=== PATIENT | male | born 1970 | race Two or more races ===

== ENCOUNTER → 2016-10-08 | Outpatient (CLI) | payer MEDICAID ==
[2016-10-08 18:06] LABS: HEMATOCRIT 45.6 % (37.9-51.0); HEMOGLOBIN 16.4 g/dL (13.5-17.0); HGB HCT DIFFERENCE 3.6; MEAN CORPUSCULAR HGB CONC 35.9 g/dL (32.0-36.0); MEAN CORPUSCULAR VOLUME 84 fl (80-97); RED BLOOD COUNT 5.45 10^6/uL (4.35-5.55); RED CELL DISTRIBUTION WIDTH 14.4 % (11.5-14.0); WHITE BLOOD COUNT 9.7 10^3/uL (4.0-10.5)
[2016-10-08 18:29] LABS: ALANINE AMINOTRANSFERASE 46 U/L (21-72); ALBUMIN 4.9 g/dL (3.5-5.0); ALKALINE PHOSPHATASE 131 U/L (38-126); ANION GAP 16 (5-19); ASPARTATE AMINO TRANSFERASE 34 U/L (17-59); BILIRUBIN,DIRECT 0.3 mg/dL (0.0-0.4); BILIRUBIN,TOTAL 0.5 mg/dL (0.2-1.3); BLOOD UREA NITROGEN 17 mg/dL (7-20); CALCIUM 9.6 mg/dL (8.4-10.2); CARBON DIOXIDE 23 mmol/L (22-30); CHLORIDE 101 mmol/L (98-107); CHOLESTEROL 201.57 mg/dL (0-200); CREATININE RESULT 0.94 mg/dL (0.52-1.25); Direct HDL 35 mg/dL (>40); GLUCOSE 332 mg/dL (75-110); POTASSIUM 4.2 mmol/L (3.6-5.0); SODIUM 139.9 mmol/L (137-145); TOTAL PROTEIN 7.6 g/dL (6.3-8.2); TRIGLYCERIDES 308 mg/dL (<150)
[2016-10-08 18:39] LABS: DIRECT LDL 102 mg/dL (<100)
[2016-10-08 18:40] LABS: VLDL CHOLESTEROL 61.6 mg/dL (10-31)
== END ==
LOC: OD 17:04
PROVIDERS: ATTEND Nurse Practitioner Family
DX: E55.9 Vitamin D deficiency, unspecified (principal); E11.9 Type 2 diabetes mellitus without complications; I10 Essential (primary) hypertension; E78.5 Hyperlipidemia, unspecified
CPT/HCPCS: 36415; 80053; 80061; 82306; 83036; 85027

== ENCOUNTER → 2016-11-06 | Outpatient (CLI) | payer MEDICAID ==
[2016-11-06 18:35] LABS: ABSOLUTE BASOPHILS # (AUTO) 0.1 10^3/uL (0.0-0.2); ABSOLUTE EOSINOPHILS # (AUTO) 0.1 10^3/uL (0.0-0.6); ABSOLUTE LYMPHOCYTES (AUTO) 2.3 10^3/uL (0.5-4.7); ABSOLUTE MONOCYTES (AUTO) 0.7 10^3/uL (0.1-1.4); ABSOLUTE NEUT (AUTO) 8.9 10^3/uL (1.7-8.2); BASOPHILS % (AUTO) 0.8 % (0-2); HEMATOCRIT 47.9 % (37.9-51.0); HEMOGLOBIN 16.9 g/dL (13.5-17.0); HGB HCT DIFFERENCE 2.8; LYMPHOCYTES % (AUTO) 18.8 % (13-45); MEAN CORPUSCULAR HEMOGLOBIN 29.9 pg (27.0-33.4); MEAN CORPUSCULAR HGB CONC 35.2 g/dL (32.0-36.0); MEAN CORPUSCULAR VOLUME 85 fl (80-97); RED BLOOD COUNT 5.65 10^6/uL (4.35-5.55); SEGMENTED NEUTROPHILS % (AUTO) 73.4 % (42-78); WHITE BLOOD COUNT 12.2 10^3/uL (4.0-10.5)
[2016-11-06 18:35] LABS: APPEARANCE,URINE CLEAR; BILIRUBIN,URINE NEGATIVE (NEGATIVE); GLUCOSE, URINE 150 mg/dL (NEGATIVE); KETONES,URINE NEGATIVE (NEGATIVE); LEUKOCYTE ESTERASE,URINE NEGATIVE (NEGATIVE); NITRITE,URINE NEGATIVE (NEGATIVE); PROTEIN,URINE NEGATIVE (NEGATIVE); URINE SPECIFIC GRAVITY 1.023; UROBILINOGEN,URINE NEGATIVE mg/dL (<2.0)
[2016-11-06 19:08] LABS: ALANINE AMINOTRANSFERASE 52 U/L (21-72); ALBUMIN 4.5 g/dL (3.5-5.0); ALKALINE PHOSPHATASE 133 U/L (38-126); ANION GAP 14 (5-19); ASPARTATE AMINO TRANSFERASE 35 U/L (17-59); BILIRUBIN,DIRECT 0.5 mg/dL (0.0-0.4); BILIRUBIN,TOTAL 0.5 mg/dL (0.2-1.3); BLOOD UREA NITROGEN 18 mg/dL (7-20); CALCIUM 10.3 mg/dL (8.4-10.2); CARBON DIOXIDE 24 mmol/L (22-30); CHLORIDE 100 mmol/L (98-107); CHOLESTEROL 192.39 mg/dL (0-200); Direct HDL 37 mg/dL (>40); GLUCOSE 189 mg/dL (75-110); POTASSIUM 4.8 mmol/L (3.6-5.0); SODIUM 137.9 mmol/L (137-145); TOTAL PROTEIN 7.9 g/dL (6.3-8.2); TRIGLYCERIDES 228 mg/dL (<150)
[2016-11-06 19:19] LABS: DIRECT LDL 119 mg/dL (<100)
[2016-11-06 19:23] LABS: FREE T3 4.98 pg/mL (2.77-5.27)
[2016-11-06 19:37] LABS: THYROID STIMULATING HORMONE 1.89 uIU/mL (0.47-4.68)
[2016-11-06 19:46] LABS: ADD HIVPANEL? NO; HIV (1 AND 2) ANTIBODY NEGATIVE (NEGATIVE)
[2016-11-06 19:49] LABS: VLDL CHOLESTEROL 45.6 mg/dL (10-31)
[2016-11-08 10:32] LABS: HEPATITIS C VIRUS AB >11.0 s/co ratio (0.0-0.9)
[2016-11-12 07:15] LABS: TESTOSTERONE FREE (DIRECT) 2.9 pg/mL (6.8-21.5)
== END ==
LOC: OD 17:04
PROVIDERS: ATTEND Emergency Medicine
DX: F11.20 Opioid dependence, uncomplicated (principal); Z20.6 Contact with and (suspected) exposure to human immunodeficiency virus [HIV]; Z79.899 Other long term (current) drug therapy
CPT/HCPCS: 36415; 80053; 80061; 81001; 82977; 83036; 84402; 84403; 84439; 84443; 84481; 85025; 86592; 86701; 86803; 86804; 87340

== ENCOUNTER → 2016-11-06 | Outpatient (CLI) | payer MEDICAID | LOC: OD 17:09 | PROVIDERS: ATTEND Emergency Medicine | DX: Z53.9 Procedure and treatment not carried out, unspecified reason (principal) ==

== ENCOUNTER → 2018-02-06 | Outpatient (CLI) | payer BC ==
[2018-02-06 09:27] LABS: ABSOLUTE EOSINOPHILS # (AUTO) 0.2 10^3/uL (0.0-0.6); ABSOLUTE LYMPHOCYTES (AUTO) 1.5 10^3/uL (0.5-4.7); ABSOLUTE MONOCYTES (AUTO) 0.6 10^3/uL (0.1-1.4); ABSOLUTE NEUT (AUTO) 6.2 10^3/uL (1.7-8.2); BASOPHILS % (AUTO) 0.6 % (0-2); EOSINOPHILS % (AUTO) 2.9 % (0-6); HEMATOCRIT 39.7 % (37.9-51.0); MEAN CORPUSCULAR HEMOGLOBIN 29.3 pg (27.0-33.4); MEAN CORPUSCULAR HGB CONC 35.2 g/dL (32.0-36.0); MEAN CORPUSCULAR VOLUME 83 fl (80-97); MONOCYTES % (AUTO) 6.5 % (3-13); PLATELET COUNT 419 10^3/uL (150-450); RED BLOOD COUNT 4.77 10^6/uL (4.35-5.55); RED CELL DISTRIBUTION WIDTH 14.6 % (11.5-14.0); TOTAL CELLS COUNTED % (AUTO) 100 %; WHITE BLOOD COUNT 8.6 10^3/uL (4.0-10.5)
[2018-02-06 09:58] LABS: ALANINE AMINOTRANSFERASE 26 U/L (21-72); ALKALINE PHOSPHATASE 130 U/L (38-126); ANION GAP 14 (5-19); ASPARTATE AMINO TRANSFERASE 15 U/L (17-59); BILIRUBIN,DIRECT 0.3 mg/dL (0.0-0.4); BILIRUBIN,TOTAL 0.3 mg/dL (0.2-1.3); BLOOD UREA NITROGEN 17 mg/dL (7-20); CARBON DIOXIDE 27 mmol/L (22-30); CHLORIDE 99 mmol/L (98-107); GLUCOSE 280 mg/dL (75-110); POTASSIUM 5.4 mmol/L (3.6-5.0); TOTAL PROTEIN 7.1 g/dL (6.3-8.2); TRIGLYCERIDES 134 mg/dL (<150)
[2018-02-06 10:08] LABS: DIRECT LDL 131 mg/dL (<100)
[2018-02-07 13:38] LABS: CREATININE URINE 57.1 mg/dL (Not Estab.)
[2018-02-09 06:19] LABS: MICROALBUMIN URINE <3.0 ug/mL (Not Estab.)
== END ==
LOC: OD 08:11
PROVIDERS: ATTEND Internal Medicine Geriatric Medicine
DX: E11.65 Type 2 diabetes mellitus with hyperglycemia (principal)
CPT/HCPCS: 36415; 80053; 80061; 82043; 82570; 83036; 85025

== ENCOUNTER 2018-02-11 10:49 | Emergency (ER) | payer BC ==
--- NOTE | 2018-02-12 07:11 | EKG REPORT ---
SEVERITY:- ABNORMAL ECG - SINUS RHYTHM MILD DIFFUSE NONSPECIFIC ST-CHANGES,CLINICAL CORRELATION NEEDED, NO OLD EKG FOR COMPARISON : Confirmed by: Fahad Fajardo MD 12-Feb-2018 07:10:16
== END 2018-02-11 14:41 | disposition left against medical advice (07) ==
LOC: ER 10:49
DX: Z53.21 Procedure and treatment not carried out due to patient leaving prior to being seen by health care provider (principal)
CPT/HCPCS: 93005; 93010

== ENCOUNTER 2018-04-22 17:04 | Emergency (ER) | payer OTHER, BC ==
[2018-04-22] MEDS ORDERED: IBUPROFEN 800 MG TABLET PO ONE (18:06)
--- NOTE | 2018-04-22 18:44 | RADIOLOGY REPORT (SQ) ---
EXAM DESCRIPTION: KNEE LEFT 4 VIEW COMPLETED DATE/TIME: 04/22/2018 6:32 pm REASON FOR STUDY: fall from stool, L lat knee pain COMPARISON: 06/13/2013. NUMBER OF VIEWS: Four views. TECHNIQUE: AP, lateral, and both oblique radiographic images acquired of the left knee. LIMITATIONS: None. FINDINGS: MINERALIZATION: Normal. BONES: No acute fracture or dislocation. Joint space narrowing with osteophytes in all compartments. No worrisome bone lesions. JOINT: No effusion. SOFT TISSUES: No soft tissue swelling. No radio-opaque foreign body. OTHER: No other significant finding. IMPRESSION: MULTI COMPARTMENT DEGENERATIVE JOINT DISEASE. NO RADIOGRAPHIC EVIDENCE OF ACUTE INJURY. TECHNICAL DOCUMENTATION: JOB ID: [id number] [employer]- All Rights Reserved Reading location - IP/workstation name: [email or web address]
--- NOTE | 2018-04-22 19:04 | ER Document Report ---
HPI - HPI Patient complains to provider of: Left knee injury Onset: Other - 3 days Onset/Duration: Persistent Quality of pain: Achy Pain Level: 4 Context: Patient states that he was at work on a step stool in the stool started to wobble causing him to fall. Patient states that he put his left leg down and twisted his left knee. Patient complains of persistent pain since then. Patient does acknowledge a previous history of osteoarthritis involving that knee. Associated Symptoms: Other - Left knee pain Exacerbated by: Standing, Movement, Walking Relieved by: Denies Similar symptoms previously: Yes Recently seen / treated by doctor: No - ROS ROS below otherwise negative: Yes Systems Reviewed and Negative: Yes All other systems reviewed and negative - CONSTITUTIONAL Constitutional: DENIES: Fever - NEURO Neurology: DENIES: Weakness - MUSCULOSKELETAL Musculoskeletal: REPORTS: Extremity pain - DERM Skin Color: Normal Skin Problems: None Past Medical History - General Information source: Patient - Social History Smoking Status: Current Every Day Smoker Chew tobacco use (# tins/day): No Smoking Education Provided: Yes Frequency of alcohol use: None Drug Abuse: None 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 Family History: Reviewed & Not Pertinent Patient has suicidal ideation: No Patient has homicidal ideation: No - Past Medical History Cardiac Medical History: Reports: Hx Hypertension Endocrine Medical History: Reports: Hx Diabetes Mellitus Type 2 Renal/ Medical History: Denies: Hx Peritoneal Dialysis Musculoskeletal Medical History: Reports Hx Arthritis Psychiatric Medical History: Reports: Hx Anxiety, Hx Attention Deficit Hyperactivity Disorder, Hx Depression Past Surgical History: Reports: Hx Appendectomy, Hx Oral Surgery, Hx Orthopedic Surgery - Immunizations Hx Diphtheria, Pertussis, Tetanus Vaccination: Yes Vertical Provider Document - CONSTITUTIONAL Agree With Documented VS: Yes Exam Limitations: No Limitations General Appearance: WD/WN, No Apparent Distress - INFECTION CONTROL TRAVEL OUTSIDE OF THE [place] IN LAST 30 DAYS: No - HEENT HEENT: Atraumatic, Normocephalic - NECK Neck: Normal Inspection - RESPIRATORY Respiratory: No Respiratory Distress - CARDIOVASCULAR Pulses: Normal: Posterior tibial - MUSCULOSKELETAL/EXTREMETIES Musculoskeletal/Extremeties: MAEW, FROM, Tender - Left knee joint tenderness along lateral compartment and joint line. Subtle laxity with varus testing. Patellar tendon intact. negative: Eccymosis - NEURO Level of Consciousness: Awake, Alert, Appropriate Motor/Sensory: No Motor Deficit - DERM Integumentary: Warm, Dry, No Rash Course - Vital Signs Vital signs: Temp Pulse Resp BP Pulse Ox 98 F 101 H 14 152/82 H 97 04/22/18 17:16 04/22/18 17:16 04/22/18 17:16 04/22/18 17:16 04/22/18 17:16 - Diagnostic Test Radiology reviewed: Reports reviewed Procedures - Immobilization Left Knee Pre-Proc Neuro Vasc Exam: Normal Immobilizer type: Knee immobilizer Performed by: PCT Post-Proc Neuro Vasc Exam: Normal Alignment checked and good: Yes Discharge - Discharge Clinical Impression: Arthritis Left knee sprain Qualifiers: Encounter type: initial encounter Involved ligament of knee: unspecified ligament Qualified Code(s): S83.92XA - Sprain of unspecified site of left knee, initial encounter Condition: Stable Disposition: HOME, SELF-CARE Instructions: Use of Crutches ([facility]), Ice & Elevation ([facility]), Knee Immobilizing Splint ([facility]), Sprained Knee ([facility]) Additional Instructions: Return immediately for any new or worsening symptoms Followup with your primary care provider, call tomorrow to make a followup appointment Weightbearing as tolerated Follow-up with orthopedics for any persistent pain or problems Wear splint for the next 3-4 days and then remove. Prescriptions: Naproxen [Naprosyn 250 Nmg Tablet] 1 tab PO BID #14 tablet Forms: Smoking Cessation Education, Return to Work Referrals: EVON LANTIGUA MD [Primary Care Provider] - Follow up as needed [facility] [Provider Group] - Follow up as needed
[2018-04-22 19:26] VITALS: BP 150/59
== END 2018-04-22 19:26 | disposition home or self-care (01) ==
LOC: ER 17:04
DX: S83.92XA Sprain of unspecified site of left knee, initial encounter (principal); W17.89XA Other fall from one level to another, initial encounter; Y99.0 Civilian activity done for income or pay; M17.12 Unilateral primary osteoarthritis, left knee; E11.9 Type 2 diabetes mellitus without complications; I10 Essential (primary) hypertension; F17.200 Nicotine dependence, unspecified, uncomplicated
CPT/HCPCS: 99283; 73564; L1830

== ENCOUNTER 2019-01-16 05:32 | Inpatient (IN) | payer BC, OTHER ==
--- NOTE | 2019-01-16 05:45 | ER Document Report ---
Doctor's Note Notes: 01/16/19 05:43 I performed a trans-evaluation of the patient. Patient is a 48-year-old male who presents with complaint of difficulty breathing. He says he has been coughing worsening difficulty breathing last few days but became suddenly much worse tonight. He says that tonight he had to go the bathroom and any vomited blood. After that he start coughing and difficulty breathing and is coughed up some blood sputum. He said no further vomiting since the initial episode. No abdominal pain. No recent fevers. Patient denies ever coughing up blood like this before. He is a smoker. Paramedics said that his oxygen saturation was 79% when they arrived. They placed him on CPAP and they said this is significantly improved his work of breathing. Patient currently is breathing comfortably on CPAP. I did switch him to BiPAP and is doing well with that. His lung pace currently are clear. I have ordered a chest x-ray, would work. EKG does not show any concerning acute findings at this time. Patient is tachycardic but is not hypotensive. Dictation of this chart was performed using voice recognition software; therefore, there may be some unintended grammatical errors.
[2019-01-16 06:15] LABS: ABSOLUTE EOSINOPHILS # (AUTO) 0.1 10^3/uL (0.0-0.6); ABSOLUTE MONOCYTES (AUTO) 0.6 10^3/uL (0.1-1.4); ABSOLUTE NEUT (AUTO) 14.3 10^3/uL (1.7-8.2); BASOPHILS % (AUTO) 0.3 % (0-2); EOSINOPHILS % (AUTO) 0.4 % (0-6); HEMATOCRIT 42.5 % (37.9-51.0); HEMOGLOBIN 14.6 g/dL (13.5-17.0); MEAN CORPUSCULAR HEMOGLOBIN 28.9 pg (27.0-33.4); MEAN CORPUSCULAR HGB CONC 34.2 g/dL (32.0-36.0); MEAN CORPUSCULAR VOLUME 84 fl (80-97); MONOCYTES % (AUTO) 3.9 % (3-13); PLATELET COUNT 302 10^3/uL (150-450); RED BLOOD COUNT 5.04 10^6/uL (4.35-5.55); RED CELL DISTRIBUTION WIDTH 13.5 % (11.5-14.0); SEGMENTED NEUTROPHILS % (AUTO) 89.4 % (42-78); TOTAL CELLS COUNTED % (AUTO) 100 %; VENOUS BLOOD BASE EXCESS -4.8 mmol/L; VENOUS BLOOD HCO3 21.7 mmol/L (20-32); VENOUS BLOOD PCO2 45.5 mmHg (35-63); VENOUS BLOOD PH 7.3 (7.30-7.42)
[2019-01-16 06:20] LABS: INTERNATIONAL RATION (INR) 0.98
--- NOTE | 2019-01-16 06:20 | RADIOLOGY REPORT (SQ) ---
EXAM DESCRIPTION: XR CHEST 1 VIEW COMPLETED DATE/TME: 01/16/2019 05:42 CLINICAL HISTORY: 48 years Male, dyspnea COMPARISON: 09/01/13 NUMBER OF VIEWS/TECHNIQUE: 1/AP FINDINGS: Moderate mixed airspace and interstitial opacities with lower and mid predominance. Adequate lung volume, normal cardiac silhouette, and intact bony thorax. IMPRESSION: Moderate mixed interstitial and airpace opacities. Differential diagnosis includes pulmonary edema, multifocal pneumonia, and chronic interstitial lung disease.
[2019-01-16 06:21] LABS: PARTIAL THROMBOPLASTIN TIME 23.9 SEC (23.5-35.8)
[2019-01-16 06:27] LABS: ALANINE AMINOTRANSFERASE 21 U/L (21-72); ALBUMIN 4.1 g/dL (3.5-5.0); ALKALINE PHOSPHATASE 126 U/L (38-126); ANION GAP 10 (5-19); ASPARTATE AMINO TRANSFERASE 20 U/L (17-59); BILIRUBIN,DIRECT 0.3 mg/dL (0.0-0.4); BILIRUBIN,TOTAL 0.5 mg/dL (0.2-1.3); BLOOD UREA NITROGEN 24 mg/dL (7-20); CARBON DIOXIDE 23 mmol/L (22-30); CHLORIDE 104 mmol/L (98-107); GLUCOSE 378 mg/dL (75-110); POTASSIUM 4.5 mmol/L (3.6-5.0); TOTAL PROTEIN 6.9 g/dL (6.3-8.2)
[2019-01-16] MEDS ORDERED: AZITHROMYCIN INJ 500 MG VIAL IV ONE (07:49)
[2019-01-16] MEDS ORDERED: NORMAL SALINE 1000 ML 1,000 ML IV ONE (07:50)
--- NOTE | 2019-01-16 07:50 | ER Document Report ---
Entered by KING CROCKER SCRIBE 01/16/19 0645 Acting as scribe for:JULIO MCNAIR DO ED General - General Chief Complaint: Shortness Of Breath Stated Complaint: RESPIRATORY DISTRESS Time Seen by Provider: 01/16/19 05:41 Notes: Patient is a 48-year-old male brought in by EMS to the emergency department complaining of shortness of breath. Patient is currently on BiPAP and states that he experienced nausea , vomiting with approximately 1 cup of blood today at work. Patient states that 2 weeks ago he began having left-sided tooth pain, which radiated to his ear, throat, jaw. Pain is now radiating down to his chest associated with shortness of breath that started today. Patient states that he is a type II diabetic who uses Lantus. Patient denies having any blood in his stool. TRAVEL OUTSIDE OF THE [place] IN LAST 30 DAYS: No - Related Data Allergies/Adverse Reactions: No Known Allergies Allergy (Verified 04/22/18 17:06) Past Medical History - General Information source: Patient - Social History Smoking Status: Current Every Day Smoker Cigarette use (# per day): Yes Chew tobacco use (# tins/day): No Smoking Education Provided: No Frequency of alcohol use: None Drug Abuse: None Family History: Reviewed & Not Pertinent - Past Medical History Cardiac Medical History: Reports: Hx Hypertension Endocrine Medical History: Reports: Hx Diabetes Mellitus Type 2 Musculoskeletal Medical History: Reports Hx Arthritis Psychiatric Medical History: Reports: Hx Anxiety, Hx Attention Deficit Hyperactivity Disorder, Hx Depression Past Surgical History: Reports: Hx Appendectomy, Hx Oral Surgery, Hx Orthopedic Surgery - Immunizations Hx Diphtheria, Pertussis, Tetanus Vaccination: Yes Review of Systems - Review of Systems Constitutional: No symptoms reported EENT: No symptoms reported Cardiovascular: Dyspnea. denies: Chest pain, Heart racing, Orthopnea Respiratory: See HPI, Short of breath Gastrointestinal: See HPI Genitourinary: No symptoms reported Male Genitourinary: No symptoms reported Musculoskeletal: No symptoms reported Skin: No symptoms reported Hematologic/Lymphatic: No symptoms reported Neurological/Psychological: No symptoms reported -: Yes All other systems reviewed and negative Physical Exam - Vital signs Vitals: Resp Pulse Ox 28 H 98 01/16/19 05:35 01/16/19 05:35 - Notes Notes: PHYSICAL EXAM GENERAL: Alert, interacts well. No acute distress, obese. On BiPAP HEAD: Normocephalic, atraumatic. EYES: Pupils equal, round, and reactive to light. Extraocular movements intact. ENT: Oral mucosa moist, tongue midline. NECK: Full range of motion. Supple. Trachea midline. LUNGS: Trace rhonchi expiratory at bases bilaterally. Currently on BiPAP. no wheezes, rales. HEART: Tachycardia. Regular rhythm. No murmurs, gallops, or rubs. ABDOMEN: Soft, non-tender. Non-distended. Bowel sounds present in all 4 quadrants. No guarding, rigidity, or rebound. EXTREMITIES: Moves all 4 extremities spontaneously. No edema, radial and dorsalis pedis pulses 2/4 bilaterally. No cyanosis. NEUROLOGICAL: Alert and oriented x3. Normal speech. Biceps and patellar DTRs 2+ bilaterally. PSYCH: Normal affect, normal mood. SKIN: Warm, dry, normal turgor. No rashes or lesions noted. Course - Re-evaluation Re-evalutation: 01/16/19 07:48 CBC shows leukocytosis at 16.0, coags normal, venous blood gas mildly acidotic, CMP shows acute renal failure with a BUN of 24 and a creatinine of 1.32, hyperglycemia with a glucose of 378, lactic acid is normal at 1.78, no signi ficant anemia hemoglobin is actually normal at 14.6. Chest x-ray reveals moderate mixed airspace and interstitial opacities with lower and mid predominance consistent with multifocal pneumonia in the setting of leukocytosis and hypoxia as well as cough. With the hematemesis patient states that he was dry heaving for several minutes before he actually vomited, suspect this is actually a Magda-Samuel tear rather than true upper GI bleed. Patient has had no dark tarry stools or change in bowel movements, no prior hematemesis. Patient is significantly improved after being on BiPAP 01/16/19 07:48 Patient was discussed with Dr. Alegre his primary care physician who agrees to admit the patient to the [facility] under his service. 01/16/19 10:10 Patient was moved to room 17 in the emergency department. Patient is experiencing hypoxia, wheezes, he is diaphoretic, he is anxious. 01/16/19 10:34 Patient acutely anxious, acutely short of breath, profusely diaphoretic, not tolerating either BiPAP or nonrebreather, refuses to leave anything on his face. Patient was given more Ativan and more morphine as well as an albuterol breathing treatment. Using this he was able to tolerate BiPAP who his settings were increased as was the oxygen. I received a phone call from radiology who states that the patient has evidence of pulmonary edema and pleural effusions but no signs of pulmonary embolism or Lemierre's syndrome. Patient was then started on nitroglycerin drip, patient's oxygenation is slowly recovering, he is at 93% on 100% oxygen and BiPAP at this time. Patient will continue to be m onitored closely. 01/16/19 10:53 Patient is improved, much calmer, oxygen saturation is 95%, tolerating nitroglycerin at 60 mcg/min well. Patient has been given Lasix and is on the nitro drip. Discussed acute change in status with Dr. Algere who agrees with changing the patient to ICU level of care. EKG and cardiac enzymes have been added. 01/16/19 15:56 Patient is dramatically improved, still on BiPAP and a nitro drip. No longer anxious, oxygen has been able to be titrated down to 70% FiO2. Stable for transfer to ICU. - Vital Signs Vital signs: Temp Pulse Resp BP Pulse Ox 98.2 F 119 H 24 H 123/68 97 01/16/19 13:20 01/16/19 05:50 01/16/19 15:11 01/16/19 15:21 01/16/19 15:20 - Laboratory Result Diagrams: 01/16/19 05:50 01/16/19 05:50 Laboratory results interpreted by me: 01/16/19 01/16/19 05:50 05:50 WBC 16.0 H Seg Neutrophils % 89.4 H Lymphocytes % 6.0 L Absolute Neutrophils 14.3 H BUN 24 H Creatinine 1.32 H Est GFR (Non-Af Amer) 58 L Glucose 378 H - EKG Interpretation by Me Additional EKG results interpreted by me: 01/16/19 07:49 EKG shows sinus tachycardia at a rate of 114, left bundle branch block, normal axis, no ST segment elevations or depressions, no T wave inversions per my interpretation. 01/16/19 14:44 Repeat EKG shows sinus tachycardia at a rate of 127, normal axis, incomplete left bundle branch block, no ST segment elevations, there are ST segment depressions noted in the 3 and V4, minimal depressions in V5 and none in V6, T wave inversions noted in lead II, 3, aVF per my interpretation. Critical Care Note - Critical Care Note Total time excluding time spent on procedures (mins): 80 Discharge - Discharge Clinical Impression: Multifocal pneumonia Acute renal failure Qualifiers: Acute renal failure type: unspecified Qualified Code(s): N17.9 - Acute kidney failure, unspecified Respiratory failure with hypoxia Qualifiers: Chronicity: acute Qualified Code(s): J96.01 - Acute respiratory failure with hypoxia Hyperglycemia due to type 2 diabetes mellitus Qualifiers: Diabetes mellitus terminal manager insulin use: with terminal manager use Qualified Code(s): E11.65 - Type 2 diabetes mellitus with hyperglycemia; Z79.4 - FPC (current) use of insulin Pulmonary edema Qualifiers: Chronicity: acute Qualified Code(s): J81.0 - Acute pulmonary edema Condition: Fair Disposition: ADMITTED INPATIENT Admitting Provider: [facility] Unit Admitted: ICU I personally performed the services described in the documentation, reviewed and edited the documentation which was dictated to the scribe in my presence, and it accurately records my words and actions.
[2019-01-16] MEDS ORDERED: CEFTRIAXONE 1 GM/D5W RTU 1 GM/50 ML RTUPB IV SCH (08:00)
[2019-01-16] MEDS: AZITHROMYCIN 500 MG in DEXTROSE 5%-WATER 250 ML IV SCH ×2 (08:11→09:43)
[2019-01-16] MEDS ORDERED: LORAZEPAM INJ 2 MG/1 ML VIAL IV ONE ×2 (09:19→10:14)
[2019-01-16] MEDS ORDERED: MORPHINE SULFATE 10 MG/ML INJ IV ONE ×2 (09:19→10:14)
[2019-01-16] MEDS ORDERED: MORPHINE SULFATE 10 MG/ML INJ ONE (09:20)
[2019-01-16] MEDS ORDERED: ONDANSETRON HCL INJ/PF 4 MG/2 ML SDV ONE ×2 (09:20→10:22)
[2019-01-16] MEDS ORDERED: ONDANSETRON HCL INJ/PF 4 MG/2 ML SDV IV ONE ×2 (09:38→10:53)
[2019-01-16] MEDS ORDERED: IPRATROPIUM/ALBUTEROL 0.5-2.5 MG/3 ML AMPUL NEB ONE ×2 (10:13→10:54)
[2019-01-16] MEDS ORDERED: ALBUTEROL SULFATE 0.083% NEB 2.5 MG/3 ML AMPUL NEB ONE (10:14)
[2019-01-16] MEDS ORDERED: NITROGLYCERIN/D5W 50 MG/250 ML RTUINJ IV ONE (10:22)
[2019-01-16] MEDS ORDERED: FUROSEMIDE INJ/PF 40 MG/4 ML SDV ONE (10:30)
--- NOTE | 2019-01-16 10:30 | RADIOLOGY REPORT (SQ) ---
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 Images reviewed with lung, soft tissue and bone windows. Reconstructed coronal and sagittal MPR images reviewed. Additional 3 dimensional post-processing performed to develop Maximal Intensity Projection images (NM P). All images stored on PACS. All CT scanners at this facility use dose modulation, iterative reconstruction, and/or weight based d osing when appropriate to reduce radiation dose to as low as reasonably achievable (ALARA). [facility]: Dose Right [facility]: CareDose [facility]: Dose Right [facility]: Teradose 4D [facility]: Cardica CONTRAST TYPE AND DOSE: contrast/concentration: Isovue 350.00 mg/ml; Total Contrast Delivered: 139.0 ml; Total Saline Delivered: 117.0 ml Contrast bolus optimized for the pulmonary arteries. Not diagnostic for the aorta. RENAL FUNCTION: Creatinine 1.3 RADIATION DOSE: CT Rad equipment meets quality standard of care and radiation dose reduction techniq ues were employed. CTDIvol: 16.5 - 29.8 mGy. DLP: 1214 mGy-cm. . LIMITATIONS: None. FINDINGS: LUNGS AND PLEURA: Diffuse bilateral alveolar and interstitial pulmonary edema is present. Trace bilateral pleural effusions are present. No pneumothorax. AORTA AND GREAT VESSELS: No aneurysm. Contrast bolus not optimized for the aorta. HEART: No pericardial effusion. No significant coronary artery calcifications. PULMONARY ARTERIES: No emboli visualized in the main pulmonary arteries or the segmental branches. HILAR AND MEDIASTINAL STRUCTURES: There is mediastinal adenopathy as follows: Right paratracheal lev el 4R lymph node 2 x 1.5 cm axial image 41. left level 4r lymph node 1.9 x 1.3 cm axial image 44 sub- carinal lymph node 3 x 1.5 cm image 53 HARDWARE: None in the chest. UPPER ABDOMEN: Small hiatal hernia. Right upper pole intrarenal nonobstructive 2 to 3 mm calculi THYROID AND OTHER SOFT TISSUES: No masses. No adenopathy. BONES: No acute or significant finding. 3D MIPS: Confirm above findings. OTHER: No other significant finding. IMPRESSION: Alveolar and interstitial pulmonary edema with trace pleural effusions No CT angio evidence of acute pulmonary emboli. Mild mediastinal adenopathy COMMENT: Quality ID # [id number]: Final reports with documentation of one or more dose reduction techniques (e.g., Automated exposure control, adjustment of the mA and/or kV according to patient size, use of iterative reconstruction technique) TECHNICAL DOCUMENTATION: JOB ID: [id number] [email or web address]- All Rights Reserved Reading location - IP/workstation name: [email or web address]
--- NOTE | 2019-01-16 10:33 | RADIOLOGY REPORT (SQ) ---
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 Multiplanar reconstruction. 3-D MIPS and Volume-rendered imag es acquired at the workstation and saved to PACS. Images are reviewed in soft tissue, bone, lung w indows. All CT scanners at this facility use dose modulation, iterative reconstruction, and/or weight based d osing when appropriate to reduce radiation dose to as low as reasonably achievable (ALARA). [facility]: Dose Right [facility]: CareDose [facility]: Dose Right [facility]: Teradose 4D [facility]: Bulbstorm CONTRAST TYPE AND DOSE: 49 mL IV Omnipaque 350- low osmolar. RENAL FUNCTION: Creatinine 1.3 LIMITATIONS: None. FINDINGS: AORTIC ARCH: Normal three-vessel origin. Bilateral subclavian arteries are patent. No d issection. RIGHT CAROTIDS: Patent common, internal and external carotid arteries without suggestion of significa nt stenosis or irregular plaque. No dissection. RIGHT VERTEBRAL: Patent. No dissection. LEFT CAROTIDS: Patent common, internal and external carotid arteries without suggestion of significan t stenosis or irregular plaque. No dissection. LEFT VERTEBRAL: Patent. No dissection. OTHER: The right jugular vein is dominant, left is small but patent. Normal contrast enhancement on coronal reconstruction maximum intensity projected images 42-58. No evidence of left jugular vein th rombosis in the neck. There is pulmonary edema in the lung apices. Mediastinal adenopathy is present, reported on CT chest exam today. There is degenerative disc change at C5-6 with posterior diffuse disc bulge and bony spurring with mi ld central stenosis and moderate bilateral foraminal narrowing. Patient is edentulous. No prevertebral inflammation/phlegmon. Report discussed with Dr Cortez OTHER: 3-D reconstructions confirm findings. IMPRESSION: NORMAL CTA OF THE EXTRA-CRANIAL CAROTID AND VERTEBRAL ARTERIES. No CTA evidence of jugular vein thrombosis or prevertebral space abscess COMMENT: Quality ID #[id number]: Measurements of distal internal carotid diameter were used as the denomina tor for stenosis measurement. TECHNICAL DOCUMENTATION: JOB ID: [id number] Quality ID # [id number]: Final reports with documentation of one or more dose reduction techniques (e.g., Au tomated exposure control, adjustment of the mA and/or kV according to patient size, use of iterative reconstruction technique) 2010 [email or web address]- All Rights Reserved Reading location - IP/workstation name: [email or web address]
[2019-01-16] MEDS ORDERED: FUROSEMIDE INJ/PF 40 MG/4 ML SDV IV ONE (10:53)
[2019-01-16] MEDS ORDERED: NITROGLYCERIN/D5W 50 MG/250 ML RTUINJ IV PRN (10:54)
--- NOTE | 2019-01-16 13:41 | EKG REPORT ---
SEVERITY:- ABNORMAL ECG - SINUS TACHYCARDIA PROBABLE LEFT ATRIAL ABNORMALITY INCOMPLETE LEFT BUNDLE BRANCH BLOCK : Confirmed by: Fahad Fajardo MD 16-Jan-2019 13:40:56
--- NOTE | 2019-01-16 17:41 | PDOC H&P ---
History of Present Illness Admission Date/PCP: 01/16/19 08:30 Patient complains of: Difficulty with breathing History of Present Illness: АННА BOWER is a 48 year old male patient known to my practice but very noncompliant with his care and follow up management. His last office visit was in October of 2017. Patient presented to the Ed via EMS service due to worsening difficulty with breathing. He reported left sided facial pain that he related to his wisdom tooth infection over last 2-3 weeks. He was unable to get dental service due to lack of insurance. His pain spread to his jaw, neck and subsequently to his chest. He reported development of shortness of breath thereafter. He denied any discharge or drainage from his affected tooth. He reported radiation of pain into his chest with associated nausea and vomiting. Patient reported vomiting blood prior to his arrival in the ED today. His evaluation in the ED was significant for respiratory distress with associated tachycardia and leukocytosis. His chest X ray did revealed bilateral infiltrates. His CT chest suggested same with bilateral pleural effusion. There was no identified pulmonary emboli. He was advised hospitalization for further evaluation and management. His morbidities include diabetes mellitus, Hypertension, knee and hip arthritis, low back pain, carpal tunnel syndrome, ADHD, and mixed anxiety and depression. Past Medical History Cardiac Medical History: Reports: Hypertension Endocrine Medical History: Reports: Diabetes Mellitus Type 2 Musculoskeltal Medical History: Reports: Arthritis Psychiatric Medical History: Reports: Attention Deficit Hyperactivity Disorder, Depression Past Surgical History Past Surgical History: Reports: Appendectomy, Orthopedic Surgery Social History Smoking Status: Current Every Day Smoker Cigarettes Packs Per Day: 1 Last Time Smoked: 01/15/19 Frequency of Alcohol Use: None Hx Recreational Drug Use: No Drugs: None Hx Prescription Drug Abuse: No - Advance Directive Resuscitation Status: Full Code Family History Family History: Reviewed & Not Pertinent Parental Family History Reviewed: Yes Children Family History Reviewed: Yes Sibling(s) Family History Reviewed.: Yes Medication/Allergy Home Medications: Atomoxetine HCl [Strattera] 40 mg PO DAILY 01/16/19 Buprenorphine HCl/Naloxone HCl [Buprenorphin-Naloxon 8-2 mg Sl] 1 each SL Q12 01/16/19 Hum Insulin NPH/Reg Insulin Hm [Novolin 70-30 100 Unit/Ml Vial] 50 unit SQ BID 01/16/19 Sildenafil Citrate [Revatio 20 mg Tablet] 40 mg PO ASDIR PRN MDD 100 mg 01/16/19 Allergies/Adverse Reactions: No Known Allergies Allergy (Verified 04/22/18 17:06) Review of Systems Constitutional: ABSENT: chills, fever(s), headache(s), weight gain, weight loss Eyes: ABSENT: visual disturbances Ears: ABSENT: hearing changes Nose, Mouth, and Throat: PRESENT: mouth pain Cardiovascular: PRESENT: chest pain, dyspnea on exertion Respiratory: ABSENT: cough, hemoptysis Gastrointestinal: PRESENT: hematemesis, nausea, vomiting. ABSENT: as per HPI, abdominal pain, bloating, coffee ground emesis, constipation, diarrhea, dysphagia, heartburn, hematochezia, melena, other Genitourinary: ABSENT: dysuria, hematuria Musculoskeletal: PRESENT: back pain Integumentary: ABSENT: rash, wounds Neurological: ABSENT: abnormal gait, abnormal speech, confusion, dizziness, focal weakness, syncope Psychiatric: PRESENT: anxiety, depression Endocrine: ABSENT: cold intolerance, heat intolerance, polydipsia, polyuria Hematologic/Lymphatic: ABSENT: easy bleeding, easy bruising, lymphadenopathy Allergic/Immunologic: ABSENT: seasonal rhinorrhea Physical Exam Vital Signs: Temp Pulse Resp BP Pulse Ox 97.9 F 119 H 24 H 130/56 H 100 01/16/19 16:12 01/16/19 05:50 01/16/19 16:05 01/16/19 16:21 01/16/19 16:15 Intake & Output 01/15/19 01/16/19 01/17/19 06:59 06:59 06:59 Intake Total 1326 Output Total 1300 Balance 26 Weight 144.1 kg General appearance: PRESENT: morbidly obese, severe distress - on BiPAP support presently Head exam: PRESENT: atraumatic, normocephalic Eye exam: PRESENT: conjunctiva pink, EOMI, PERRLA. ABSENT: scleral icterus Ear exam: PRESENT: normal external ear exam Mouth exam: PRESENT: moist Teeth exam: PRESENT: poor dentation Throat exam: ABSENT: post pharyngeal erythema, tonsillar erythema, tonsillar exudate, tonsillogmegaly, other Neck exam: PRESENT: full ROM. ABSENT: carotid bruit, JVD, lymphadenopathy, thyromegaly Respiratory exam: PRESENT: decreased breath sounds - at lung bases, rhonchi - expiratory phase, tachypnea Cardiovascular exam: PRESENT: +S1, +S2, tachycardia. ABSENT: diastolic murmur, rubs, systolic murmur Pulses: PRESENT: +2 pedal pulses bilateral Vascular exam: PRESENT: normal capillary refill. ABSENT: pallor GI/Abdominal exam: PRESENT: distended, normal bowel sounds, soft. ABSENT: guarding, mass, organolmegaly, rebound, tenderness Rectal exam: PRESENT: deferred Extremities exam: ABSENT: pedal edema Musculoskeletal exam: PRESENT: normal inspection Neurological exam: PRESENT: alert, awake, oriented to person, oriented to place, oriented to time, oriented to situation, CN II-XII grossly intact. ABSENT: motor sensory deficit Psychiatric exam: PRESENT: appropriate affect, normal mood. ABSENT: homicidal ideation, suicidal ideation Skin exam: PRESENT: dry, warm Results Laboratory Results: 01/16/19 05:50 01/16/19 05:50 01/16/19 01/16/19 01/16/19 05:50 05:50 05:50 WBC 16.0 H RBC 5.04 Hgb 14.6 Hct 42.5 MCV 84 MCH 28.9 MCHC 34.2 RDW 13.5 Plt Count 302 Seg Neutrophils % 89.4 H Lymphocytes % 6.0 L Monocytes % 3.9 Eosinophils % 0.4 Basophils % 0.3 Absolute Neutrophils 14.3 H Absolute Lymphocytes 1.0 Absolute Monocytes 0.6 Absolute Eosinophils 0.1 Absolute Basophils 0.0 VBG pH 7.30 VBG pCO2 45.5 VBG HCO3 21.7 VBG Base Excess -4.8 Sodium 137.3 Potassium 4.5 Chloride 104 Carbon Dioxide 23 Anion Gap 10 BUN 24 H Creatinine 1.32 H Est GFR ( Amer) > 60 Est GFR (Non-Af Amer) 58 L Glucose 378 H Lactic Acid Calcium 9.0 Total Bilirubin 0.5 AST 20 ALT 21 Alkaline Phosphatase 126 Total Protein 6.9 Albumin 4.1 Blood Type Antibody Screen 01/16/19 01/16/19 05:50 05:50 WBC RBC Hgb Hct MCV MCH MCHC RDW Plt Count Seg Neutrophils % Lymphocytes % Monocytes % Eosinophils % Basophils % Absolute Neutrophils Absolute Lymphocytes Absolute Monocytes Absolute Eosinophils Absolute Basophils VBG pH VBG pCO2 VBG HCO3 VBG Base Excess Sodium Potassium Chloride Carbon Dioxide Anion Gap BUN Creatinine Est GFR ( Amer) Est GFR (Non-Af Amer) Glucose Lactic Acid 1.7 Calcium Total Bilirubin AST ALT Alkaline Phosphatase Total Protein Albumin Blood Type O POSITIVE Antibody Screen NEGATIVE 01/16/19 01/16/19 01/16/19 11:32 11:32 11:32 Creatine Kinase 132 CK-MB (CK-2) 4.40 Troponin I 0.335 Impressions: Chest X-Ray 01/16/19 05:42 IMPRESSION: Moderate mixed interstitial and airpace opacities. Differential diagnosis includes pulmonary edema, multifocal pneumonia, and chronic interstitial lung disease. Chest/Abdomen CTA 01/16/19 09:21 IMPRESSION: Alveolar and interstitial pulmonary edema with trace pleural effusions No CT angio evidence of acute pulmonary emboli. Mild mediastinal adenopathy Neck CTA 01/16/19 09:21 IMPRESSION: NORMAL CTA OF THE EXTRA-CRANIAL CAROTID AND VERTEBRAL ARTERIES. No CTA evidence of jugular vein thrombosis or prevertebral space abscess Assessment & Plan - Diagnosis (1) Multifocal pneumonia Is this a current diagnosis for this admission?: Yes Plan: See admitting attending physician orders for details of care plan. (2) Acute renal failure Qualifiers: Acute renal failure type: unspecified Qualified Code(s): N17.9 - Acute kidney failure, unspecified Is this a current diagnosis for this admission?: Yes Plan: See admitting attending physician orders for details of care plan. (3) Pulmonary edema Qualifiers: Chronicity: acute Qualified Code(s): J81.0 - Acute pulmonary edema Is this a current diagnosis for this admission?: Yes Plan: See admitting attending physician orders for details of care plan. (4) HTN (hypertension) Qualifiers: Hypertension type: essential hypertension Qualified Code(s): I10 - Essential (primary) hypertension Is this a current diagnosis for this admission?: Yes Plan: See admitting attending physician orders for details of care plan. (5) Patient noncompliance, general Is this a current diagnosis for this admission?: Yes Plan: See admitting attending physician orders for details of care plan. (6) Morbid (severe) obesity due to excess calories Is this a current diagnosis for this admission?: Yes Plan: See admitting attending physician orders for details of care plan. - Time Time Spent: 50 to 70 Minutes Medications reviewed and adjusted accordingly: Yes Anticipated discharge: Home Within: Other - Inpatient Certification Based on my medical assessment, after consideration of the patient's comorbidities, presenting symptoms, or acuity I expect that the services needed warrant INPATIENT care.: Yes I certify that my determination is in accordance with my understanding of Medicare's requirements for reasonable and necessary INPATIENT services [42 CFR 412.3e].: Yes Medical Necessity: Significant Comorbidiites Make Outpatient Treatment Too Risky, Need Close Monitoring Due to Risk of Patient Decompensation, Need For Continuous Telemetry Monitoring, Need for Nebulizer Therapy and Monitoring of Response, Need for IV Antibiotics, Risk of Complication if Not Cared For in Hospital, Risk of Diagnosis Which Will Require Inpatient Eval/Care/Monitoring Post Hospital Care: D/C Product/Device Technologist Documentation - Plan Summary Plan Summary: See admitting attending physician orders for details of care plan.
[2019-01-16] MEDS ORDERED: NORMAL SALINE 1000 ML 1,000 ML IV PRN (17:44)
[2019-01-16] MEDS ORDERED: GLUCAGON,HUMAN RECOMB 1 MG INJ IM PRN (17:44)
[2019-01-16] MEDS ORDERED: IPRATROPIUM/ALBUTEROL 0.5-2.5 MG/3 ML AMPUL NEB PRN (17:44)
[2019-01-16] MEDS ORDERED: DEXTROSE 40% GEL 15 GM TUBE PO PRN ×2 (17:44)
[2019-01-16] MEDS ORDERED: DEXTROSE 50%-WATER 25 GM/50 ML DISP.SYRIN IV PRN ×2 (17:44)
[2019-01-16] MEDS: INSULIN LISPRO 100 UNIT/ML 3 ML VIAL SUBCUT SCH (19:13)
[2019-01-16] MEDS: PANTOPRAZOLE SODIUM 40 MG TABLET.DR PO SCH (19:15)
[2019-01-16 20:09] LABS: CREATINE KINASE MB 4.02 ng/mL (<4.55); TROPONIN I 0.691 ng/mL
[2019-01-16] MEDS ORDERED: BUPRENORPHINE HCL SL SCH (22:00)
[2019-01-16] MEDS ORDERED: NALOXONE HCL SL SCH (22:00)
[2019-01-16] MEDS ORDERED: CEFEPIME 2 GM/D5W RTU 50 ML IV SCH (22:00)
[2019-01-16] MEDS ORDERED: [UNRECOGNIZED DRUG - OTHER] SL SCH (22:00)
--- NOTE | 2019-01-16 23:51 | PDOC CONSULTATION ---
Consultation-Blank Consultation: Cardiology consultation by Dr. Tawnya Hough on 01/16/2019. Patient seen at 2 PM. 60 minutes spent on this patient with more than 50% of time spent in direct patient care. REASON FOR consultation: Patient with intermittent chest tightness and shortness of breath with multiple CAD risk factors with elevated troponin I, with a indeterminate EKG due to left bundle branch block pattern. CONSULT REQUESTING PHYSICIAN: Dr. Alegre. HISTORY PRESENT ILLNESS: Patient is a 48-year-old who has been noncompliant with medication and doctors with office visits admitted with increasing shortness of breath with PND orthopnea and intermittent chest tightness. The patient is EKG shows left bundle branch block pattern, and the patient's troponin is elevated is consistent with a non-ST elevation IA. The patient has history of hypertension. History of diabetes mellitus. He has a prior history of congestive heart failure. Denies any palpitations or syncope. The patient is on IV nitroglycerin and at present pain-free although he is mildly short of breath he is on a BiPAP. The patient is not a very good historian. Past Medical History Cardiac Medical History: Reports: Hypertension Endocrine Medical History: Reports: Diabetes Mellitus Type 2 Musculoskeltal Medical History: Reports: Arthritis Psychiatric Medical History: Reports: Attention Deficit Hyperactivity Disorder, Depression Past Surgical History Past Surgical History: Reports: Appendectomy, Orthopedic Surgery Social History Smoking Status: Current Every Day Smoker Cigarettes Packs Per Day: 1 Last Time Smoked: 01/15/19 Frequency of Alcohol Use: None Hx Recreational Drug Use: No Drugs: None Hx Prescription Drug Abuse: No - Advance Directive Resuscitation Status: Full Code Family History Family History: Reviewed & Not Pertinent Parental Family History Reviewed: Yes Children Family History Reviewed: Yes Sibling(s) Family History Reviewed.: Yes Medication/Allergy Home Medications: Atomoxetine HCl [Strattera] 40 mg PO DAILY 01/16/19 Buprenorphine HCl/Naloxone HCl [Buprenorphin-Naloxon 8-2 mg Sl] 1 each SL Q12 01/16/19 Hum Insulin NPH/Reg Insulin Hm [Novolin 70-30 100 Unit/Ml Vial] 50 unit SQ BID 01/16/19 Sildenafil Citrate [Revatio 20 mg Tablet] 40 mg PO ASDIR PRN MDD 100 mg 01/16/19 Allergies/Adverse Reactions: No Known Allergies Allergy (Verified 04/22/18 17:06) Review of Systems Constitutional: ABSENT: chills, fever(s), headache(s), weight gain, weight loss Eyes: ABSENT: visual disturbances Ears: ABSENT: hearing changes Nose, Mouth, and Throat: PRESENT: mouth pain Cardiovascular: PRESENT: chest pain, dyspnea on exertion Respiratory: ABSENT: cough, hemoptysis Gastrointestinal: PRESENT: hematemesis, nausea, vomiting. ABSENT: as per HPI, abdominal pain, bloating, coffee ground emesis, constipation, diarrhea, dysphagia, heartburn, hematochezia, melena, other Genitourinary: ABSENT: dysuria, hematuria Musculoskeletal: PRESENT: back pain Integumentary: ABSENT: rash, wounds Neurological: ABSENT: abnormal gait, abnormal speech, confusion, dizziness, foc al weakness, syncope Psychiatric: PRESENT: anxiety, depression Endocrine: ABSENT: cold intolerance, heat intolerance, polydipsia, polyuria Hematologic/Lymphatic: ABSENT: easy bleeding, easy bruising, lymphadenopathy Allergic/Immunologic: ABSENT: seasonal rhinorrhea. MEDICATIONS reviewed medications as per AUG. RESUSCITATION STATUS: The patient is a full code. His is his surrogate healthcare decision maker. PHYSICAL EXAMINATION: The patient is moderate to severely obese. At present in no acute distress except for mild shortness of breath and is on a BiPAP. Selected Entries 01/16/19 01/16/19 01/16/19 13:19 13:20 13:24 Temperature 98.2 F Temperature Oral Source Heart Rate ( 117 Monitors) Respiratory 19 Rate Blood Pressure 116/73 Blood Pressure 87 Mean O2 Sat by Pulse 98 Oximetry Oxygen Delivery Method ( includes room air) Percent of Oxygen 01/16/19 13:25 Temperature Temperature Source Heart Rate ( Monitors) Respiratory Rate Blood Pressure Blood Pressure Mean O2 Sat by Pulse 99 Oximetry Oxygen Delivery Bi-pap Method ( includes room air) Percent of 100 Oxygen EYES: Pupils are equal round regular reactive to light accommodation. Extrao cular movements are normal. There is no conjunctival pallor. There is no scleral icterus. There is no conjunctival pallor. EARS: Tympanic membranes are intact. External auditory canals are clear. NOSE: NASAL MUCOUS MEMBRANES ARE MOIST. THERE IS NO INFLAMMATION OF THE NASAL MUCOUS MEMBRANE. Mouth: Mucous membranes of the mouth dry. There is no ulcers in the tongue or mouth. There is no bleeding from the gums. THROAT: There is no redness of the oropharynx. There is no exudates. SKIN: There is no skin rashes or skin lesions. There is no particular ecchymosis. LUNGS: There is diminished air entry prolonged expiration. There is dry crackles in bases left more than right consistent with pneumonia. There is no rales of CHF. There is no rhonchi or wheezing. There is no chest wall tenderness on palpation. HEART: S1-S2 is heard. There is no S3 gallop. There is no S4 gallop. Systolic murmur left sternal border and the apex there is no rub. ABDOMEN: Is obese. Nontender. There is no hepatospleno megaly. Bowel sounds are well heard. There is no tender areas of masses. EXTREMITIES: Femorals are deep. Femorals are diminished. There is no femoral bruits. Leg pulses are diminished. There is no pedal edema. There is no DVT or cellulitis. There is no calf tenderness. LUMBER MARKER: The patient is conscious awake alert oriented x3 with no focal deficits. PSYCHIATRIC: The patient judgment and insight are intact. His affect is normal Initial EKG shows sinus tachycardia. Left bundle branch block pattern type of IVCD. Subsequent EKG shows sinus rhythm with left bundle branch block pattern type of IVCD. Chest X-Ray 01/16/19 05:42 IMPRESSION: Moderate mixed interstitial and airpace opacities. Differential diagnosis includes pulmonary edema, multifocal pneumonia, and chronic interstitial lung disease. Chest/Abdomen CTA 01/16/19 09:21 IMPRESSION: Alveolar and interstitial pulmonary edema with trace pleural effusions No CT angio evidence of acute pulmonary emboli. Mild mediastinal adenopathy Neck CTA 01/16/19 09:21 IMPRESSION: NORMAL CTA OF THE EXTRA-CRANIAL CAROTID AND VERTEBRAL ARTERIES. No CTA evidence of jugular vein thrombosis or prevertebral space abscess Labs- Entire Visit 01/16/19 01/16/19 01/16/19 05:50 05:50 05:50 WBC 16.0 H RBC 5.04 Hgb 14.6 Hct 42.5 MCV 84 MCH 28.9 MCHC 34.2 RDW 13.5 Plt Count 302 Seg Neutrophils % 89.4 H Lymphocytes % 6.0 L Monocytes % 3.9 Eosinophils % 0.4 Basophils % 0.3 Absolute Neutrophils 14.3 H Absolute Lymphocytes 1.0 Absolute Monocytes 0.6 Absolute Eosinophils 0.1 Absolute Basophils 0.0 PT 13.0 INR 0.98 APTT 23.9 Carbonic Acid HCO3/H2CO3 Ratio ABG pH ABG pCO2 ABG pO2 ABG HCO3 ABG Total CO2 ABG O2 Saturation ABG Base Excess VBG pH VBG pCO2 VBG HCO3 VBG Base Excess FiO2 Sodium 137.3 Potassium 4.5 Chloride 104 Carbon Dioxide 23 Anion Gap 10 BUN 24 H Creatinine 1.32 H Est GFR ( Amer) > 60 Est GFR (Non-Af Amer) 58 L Glucose 378 H POC Glucose Hemoglobin A1c % Lactic Acid Calcium 9.0 Phosphorus Magnesium Total Bilirubin 0.5 Direct Bilirubin 0.3 Neonat Total Bilirubin Not Reportable Neonat Direct Bilirubin Not Reportable Neonat Indirect Bili Not Reportable AST 20 ALT 21 Alkaline Phosphatase 126 Creatine Kinase CK-MB (CK-2) Troponin I Total Protein 6.9 Albumin 4.1 Triglycerides Cholesterol LDL Cholesterol Direct VLDL Cholesterol HDL Cholesterol Blood Type Antibody Screen 01/16/19 01/16/19 01/16/19 05:50 05:50 05:50 WBC RBC Hgb Hct MCV MCH MCHC RDW Plt Count Seg Neutrophils % Lymphocytes % Monocytes % Eosinophils % Basophils % Absolute Neutrophils Absolute Lymphocytes Absolute Monocytes Absolute Eosinophils Absolute Basophils PT INR APTT Carbonic Acid HCO3/H2CO3 Ratio ABG pH ABG pCO2 ABG pO2 ABG HCO3 ABG Total CO2 ABG O2 Saturation ABG Base Excess VBG pH 7.30 VBG pCO2 45.5 VBG HCO3 21.7 VBG Base Excess -4.8 FiO2 Sodium Potassium Chloride Carbon Dioxide Anion Gap BUN Creatinine Est GFR ( Amer) Est GFR (Non-Af Amer) Glucose POC Glucose Hemoglobin A1c % Lactic Acid 1.7 Calcium Phosphorus Magnesium Total Bilirubin Direct Bilirubin Neonat Total Bilirubin Neonat Direct Bilirubin Neonat Indirect Bili AST ALT Alkaline Phosphatase Creatine Kinase CK-MB (CK-2) Troponin I Total Protein Albumin Triglycerides Cholesterol LDL Cholesterol Direct VLDL Cholesterol HDL Cholesterol Blood Type O POSITIVE Antibody Screen NEGATIVE 01/16/19 01/16/19 01/16/19 11:32 11:32 11:32 WBC RBC Hgb Hct MCV MCH MCHC RDW Plt Count Seg Neutrophils % Lymphocytes % Monocytes % Eosinophils % Basophils % Absolute Neutrophils Absolute Lymphocytes Absolute Monocytes Absolute Eosinophils Absolute Basophils PT INR APTT Carbonic Acid HCO3/H2CO3 Ratio ABG pH ABG pCO2 ABG pO2 ABG HCO3 ABG Total CO2 ABG O2 Saturation ABG Base Excess VBG pH VBG pCO2 VBG HCO3 VBG Base Excess FiO2 Sodium Potassium Chloride Carbon Dioxide Anion Gap BUN Creatinine Est GFR ( Amer) Est GFR (Non-Af Amer) Glucose POC Glucose Hemoglobin A1c % Lactic Acid Calcium Phosphorus Magnesium Total Bilirubin Direct Bilirubin Neonat Total Bilirubin Neonat Direct Bilirubin Neonat Indirect Bili AST ALT Alkaline Phosphatase Creatine Kinase 132 CK-MB (CK-2) 4.40 Troponin I 0.335 Total Protein Albumin Triglycerides Cholesterol LDL Cholesterol Direct VLDL Cholesterol HDL Cholesterol Blood Type Antibody Screen 01/16/19 01/16/19 01/16/19 18:47 18:47 19:01 WBC RBC Hgb Hct MCV MCH MCHC RDW Plt Count Seg Neutrophils % Lymphocytes % Monocytes % Eosinophils % Basophils % Absolute Neutrophils Absolute Lymphocytes Absolute Monocytes Absolute Eosinophils Absolute Basophils PT INR APTT Carbonic Acid HCO3/H2CO3 Ratio ABG pH ABG pCO2 ABG pO2 ABG HCO3 ABG Total CO2 ABG O2 Saturation ABG Base Excess VBG pH VBG pCO2 VBG HCO3 VBG Base Excess FiO2 Sodium Potassium Chloride Carbon Dioxide Anion Gap BUN Creatinine Est GFR ( Amer) Est GFR (Non-Af Amer) Glucose POC Glucose 318 H Hemoglobin A1c % Lactic Acid Calcium Phosphorus Magnesium Total Bilirubin Direct Bilirubin Neonat Total Bilirubin Neonat Direct Bilirubin Neonat Indirect Bili AST ALT Alkaline Phosphatase Creatine Kinase 101 CK-MB (CK-2) 4.02 Troponin I 0.691 Total Protein Albumin Triglycerides Cholesterol LDL Cholesterol Direct VLDL Cholesterol HDL Cholesterol Blood Type Antibody Screen IMPRESSION/RECOMMENDATION: 1. Patient with chest tightness intermittent with elevated troponin need to make an assumption that this is a non-ST elevation IA. Note the patient present, since admission, has no anginal symptoms. Continue IV nitroglycerin for now. Continue aspirin. Start the patient on metoprolol and increase as tolerated. Continue statin. Also continue the patient's full dose anticoag ulation with Lovenox for at least 48 hours. Later when the patient stable would recommend getting an IV Lexiscan Cardiolite stress test. 2. Bilateral pneumonia: Continue antibiotics. 3. COPD: With possible acute exacerbation. Continue inhalation therapy. Next 4. Clinically no evidence of pulmonary edema or CHF. In fact the patient seems dehydrated. We will increase the patient's IV fluids to 70 mL/h. 5. Diabetes mellitus [id number]. Continue antidiabetic regimen and serial Accu-Cheks determinations. 6. Hypertension: Blood pressure seems to be well controlled. 7. Hyperlipidemia: Continue statins also would recommend podiatry consult for dietary education for the patient. 8. Possible right upper molar abscess. Continue antibiotics. 9. Tobacco abuse disorder: Ill effects of tobacco discussed with patient recommend full resolve and action to stop smoking. Smoking cessation counseling done spent 3 minutes on this. 10. Morbid obesity. WILL recheck the patient is EKG and troponin in the morning. Continue current medication as mentioned above. Discussed with attending Physician.. Medical decision making is of high complexity. 60 minutes spent on this patient with more than 50% of time spent in direct patient care. Will follow.
[2019-01-16] MEDS: CEFEPIME HCL 2 GM in DEXTROSE 5%-WATER 50 ML IV SCH (23:59)
[2019-01-17] MEDS: GUAIFENESIN 600 MG TABLET.SA PO SCH ×3 (00:03→21:18)
[2019-01-17] MEDS ORDERED: ENOXAPARIN SODIUM INJ 150 MG/1 ML DISP.SYRIN SUBCUT ONE (01:00)
[2019-01-17] MEDS: INSULIN LISPRO 100 UNIT/ML 3 ML VIAL SUBCUT SCH ×5 (01:45→21:16)
[2019-01-17 04:33] LABS: ABSOLUTE BASOPHILS # (AUTO) 0.1 10^3/uL (0.0-0.2); ABSOLUTE EOSINOPHILS # (AUTO) 0.1 10^3/uL (0.0-0.6); ABSOLUTE LYMPHOCYTES (AUTO) 1.3 10^3/uL (0.5-4.7); ABSOLUTE MONOCYTES (AUTO) 0.7 10^3/uL (0.1-1.4); ABSOLUTE NEUT (AUTO) 7.9 10^3/uL (1.7-8.2); EOSINOPHILS % (AUTO) 0.7 % (0-6); HEMATOCRIT 35.6 % (37.9-51.0); MEAN CORPUSCULAR HEMOGLOBIN 28.9 pg (27.0-33.4); MEAN CORPUSCULAR HGB CONC 34.8 g/dL (32.0-36.0); MEAN CORPUSCULAR VOLUME 83 fl (80-97); MONOCYTES % (AUTO) 7.1 % (3-13); PLATELET COUNT 247 10^3/uL (150-450); RED BLOOD COUNT 4.28 10^6/uL (4.35-5.55); RED CELL DISTRIBUTION WIDTH 13.9 % (11.5-14.0); SEGMENTED NEUTROPHILS % (AUTO) 78.2 % (42-78); TOTAL CELLS COUNTED % (AUTO) 100 %; WHITE BLOOD COUNT 10.1 10^3/uL (4.0-10.5)
[2019-01-17 04:36] LABS: HEMOGLOBIN 12.4 g/dL (13.5-17.0)
[2019-01-17 04:41] LABS: ALANINE AMINOTRANSFERASE 21 U/L (21-72); ALBUMIN 3.2 g/dL (3.5-5.0); ALKALINE PHOSPHATASE 84 U/L (38-126); ANION GAP 7 (5-19); ASPARTATE AMINO TRANSFERASE 18 U/L (17-59); BILIRUBIN,DIRECT 0.3 mg/dL (0.0-0.4); BILIRUBIN,TOTAL 0.9 mg/dL (0.2-1.3); BLOOD UREA NITROGEN 19 mg/dL (7-20); CALCIUM 8.1 mg/dL (8.4-10.2); CARBON DIOXIDE 24 mmol/L (22-30); CHLORIDE 105 mmol/L (98-107); CHOLESTEROL 165.48 mg/dL (0-200); GLUCOSE 223 mg/dL (75-110); PHOSPHORUS 2.6 mg/dL (2.5-4.5); TOTAL PROTEIN 5.6 g/dL (6.3-8.2); TRIGLYCERIDES 120 mg/dL (<150)
[2019-01-17 04:52] LABS: DIRECT LDL 114 mg/dL (<100)
[2019-01-17] MEDS: PANTOPRAZOLE SODIUM 40 MG TABLET.DR PO SCH (06:12)
[2019-01-17] MEDS ORDERED: NITROGLYCERIN/D5W 50 MG/250 ML RTUINJ IV PRN (08:39)
--- NOTE | 2019-01-17 08:58 | RADIOLOGY REPORT (SQ) ---
EXAM DESCRIPTION: CHEST SINGLE VIEW COMPLETED DATE/TIME: 01/17/2019 8:37 am REASON FOR STUDY: CHF COMPARISON: 01/16/2019. EXAM PARAMETERS: NUMBER OF VIEWS: One view. TECHNIQUE: Single frontal radiographic view of the chest acquired. RADIATION DOSE: NA LIMITATIONS: None. FINDINGS: LUNGS AND PLEURA: No opacities, masses or pneumothorax. No pleural effusion. MEDIASTINUM AND HILAR STRUCTURES: No masses. Contour normal. HEART AND VASCULAR STRUCTURES: Mild cardiomegaly. Mild vascular congestion which has improved. BONES: No acute findings. HARDWARE: None in the chest. OTHER: No other significant finding. IMPRESSION: IMPROVEMENT IN THE FINDINGS OF CONGESTIVE HEART FAILURE. TECHNICAL DOCUMENTATION: JOB ID: [id number] [employer]- All Rights Reserved Reading location - IP/workstation name: [email or web address]
[2019-01-17] MEDS ORDERED: ATOMOXETINE HCL 40 MG PO SCH (10:00)
[2019-01-17] MEDS ORDERED: ENOXAPARIN SODIUM INJ 40 MG/0.4 ML DISP.SYRIN SUBCUT SCH (10:00)
--- NOTE | 2019-01-17 10:06 | EKG REPORT ---
SEVERITY:- ABNORMAL ECG - SINUS TACHYCARDIA PROBABLE LEFT ATRIAL ABNORMALITY NONSPECIFIC T ABNORMALITIES, LATERAL LEADS : Confirmed by: Fahad Fajardo MD 17-Jan-2019 10:05:20
[2019-01-17] MEDS: LEVOFLOXACIN 500 MG/D5W RTU 500 MG/100 ML RTUPB IV SCH (10:32)
[2019-01-17] MEDS: CEFEPIME HCL 2 GM in DEXTROSE 5%-WATER 50 ML IV SCH ×2 (10:33→21:18)
[2019-01-17] MEDS: ENOXAPARIN SODIUM INJ 150 MG/1 ML DISP.SYRIN SUBCUT SCH ×2 (10:33→21:18)
[2019-01-17 10:39] LABS: ARTERIAL BLOOD BASE EXCESS -1.3 mmol/L; ARTERIAL BLOOD H2CO3 1.11 mmol/L (1.05-1.35); ARTERIAL BLOOD HCO3 22.9 mmol/L (20-24); ARTERIAL BLOOD O2 SATURATION 96.3 % (94-98); ARTERIAL BLOOD PH 7.41 (7.35-7.45); ARTERIAL BLOOD PO2 82.5 mmHg (80-100)
[2019-01-17 10:43] LABS: ARTERIAL BLOOD FIO2 6L
[2019-01-17] MEDS ORDERED: NORMAL SALINE 1000 ML 1,000 ML IV PRN (11:11)
--- NOTE | 2019-01-17 11:22 | PDOC PROGRESS REPORT ---
Subjective Progress Note for:: 01/17/19 Subjective:: Patient to when I saw in the ER feeling much better Patient is back to the nasal cannula was BiPAP overnight Patient was diagnosed with the pneumonia and placed pulmonary edema and elevated troponin possible non-ST KS seen by the technician submarine cable equipment Patient currently doing so much better Family and and the bedside Patient's denied any chest pain denied any shortness of the breath Patient have a history of the smoking for a long time At this point patient's blood pressure is stable currently still on nitro drip patient's respiratory status is all stable I believe patient's able to go to the IMCU rather than ICU at this point Discussed with cardiology and pulmonary ligament with the patient's current conditions Reason For Visit: MULTIOBAR PNEUMONIA WITH ACUTE RESPIRATORY Physical Exam Vital Signs: Temp Pulse Resp BP Pulse Ox 97.6 F 103 H 15 135/67 H 99 01/17/19 06:13 01/17/19 08:37 01/17/19 08:37 01/17/19 07:01 01/17/19 08:37 Intake & Output 01/16/19 01/17/19 01/18/19 06:59 06:59 06:59 Intake Total 1376 50 Output Total 2600 Balance -1224 50 Weight 144.1 kg General appearance: PRESENT: no acute distress, well-developed, well-nourished Head exam: PRESENT: atraumatic, normocephalic Eye exam: PRESENT: conjunctiva pink, EOMI, PERRLA. ABSENT: scleral icterus Ear exam: PRESENT: normal external ear exam Mouth exam: PRESENT: moist, tongue midline Neck exam: PRESENT: full ROM. ABSENT: carotid bruit, JVD, lymphadenopathy, thyromegaly Respiratory exam: PRESENT: clear to auscultation claudette Cardiovascular exam: PRESENT: RRR. ABSENT: diastolic murmur, rubs, systolic murmur Vascular exam: PRESENT: normal capillary refill GI/Abdominal exam: PRESENT: normal bowel sounds, soft. ABSENT: distended, guarding, mass, organolmegaly, rebound, tenderness Rectal exam: PRESENT: deferred Extremities exam: ABSENT: pedal edema Neurological exam: PRESENT: alert, awake, oriented to person, oriented to place, oriented to time, oriented to situation, CN II-XII grossly intact. ABSENT: motor sensory deficit Psychiatric exam: PRESENT: appropriate affect, normal mood. ABSENT: homicidal ideation, suicidal ideation Skin exam: PRESENT: dry, intact, warm. ABSENT: cyanosis, rash Results Laboratory Results: 01/17/19 03:33 01/17/19 03:33 01/17/19 01/17/19 01/17/19 03:33 03:33 10:15 WBC 10.1 RBC 4.28 L Hgb 12.4 L D Hct 35.6 L MCV 83 MCH 28.9 MCHC 34.8 RDW 13.9 Plt Count 247 Seg Neutrophils % 78.2 H Lymphocytes % 13.0 Monocytes % 7.1 Eosinophils % 0.7 Basophils % 1.0 Absolute Neutrophils 7.9 Absolute Lymphocytes 1.3 Absolute Monocytes 0.7 Absolute Eosinophils 0.1 Absolute Basophils 0.1 Carbonic Acid 1.11 HCO3/H2CO3 Ratio 20:1 ABG pH 7.41 ABG pCO2 37.0 ABG pO2 82.5 ABG HCO3 22.9 ABG O2 Saturation 96.3 ABG Base Excess -1.3 FiO2 6L Sodium 135.5 L Potassium 4.0 Chloride 105 Carbon Dioxide 24 Anion Gap 7 BUN 19 Creatinine 0.88 Est GFR ( Amer) > 60 Est GFR (Non-Af Amer) > 60 Glucose 223 H Calcium 8.1 L Phosphorus 2.6 Magnesium 1.8 Total Bilirubin 0.9 AST 18 ALT 21 Alkaline Phosphatase 84 Total Protein 5.6 L Albumin 3.2 L Triglycerides 120 Cholesterol 165.48 LDL Cholesterol Direct 114 H VLDL Cholesterol 24.0 HDL Cholesterol 28 L 01/16/19 01/16/19 01/16/19 11:32 11:32 11:32 Creatine Kinase 132 CK-MB (CK-2) 4.40 Troponin I 0.335 01/16/19 01/16/19 01/17/19 18:47 18:47 03:33 Creatine Kinase 101 CK-MB (CK-2) 4.02 Troponin I 0.691 0.525 Impressions: Chest/Abdomen CTA 01/16/19 09:21 IMPRESSION: Alveolar and interstitial pulmonary edema with trace pleural effusions No CT angio evidence of acute pulmonary emboli. Mild mediastinal adenopathy Neck CTA 01/16/19 09:21 IMPRESSION: NORMAL CTA OF THE EXTRA-CRANIAL CAROTID AND VERTEBRAL ARTERIES. No CTA evidence of jugular vein thrombosis or prevertebral space abscess Chest X-Ray 01/17/19 00:00 IMPRESSION: IMPROVEMENT IN THE FINDINGS OF CONGESTIVE HEART FAILURE. Assessment & Plan - Diagnosis (1) Multifocal pneumonia Is this a current diagnosis for this admission?: Yes Plan: With the history of the smoking underlying possible COPD with chest x-ray still consistent with the possible pneumonia with elevated white counts we will continues to IV antibiotic (2) Elevated troponin Is this a current diagnosis for this admission?: Yes Plan: May be underlying non-ST KS follow with the cardiology discussed with him continues to current medications try to wean off from the nitro drip continues to Lovenox therapy (3) Acute renal failure Qualifiers: Acute renal failure type: unspecified Qualified Code(s): N17.9 - Acute kidney failure, unspecified Is this a current diagnosis for this admission?: Yes Plan: Continues to IV fluid (4) HTN (hypertension) Qualifiers: Hypertension type: essential hypertension Qualified Code(s): I10 - Essential (primary) hypertension Is this a current diagnosis for this admission?: Yes Plan: Clear all stable (5) Hyperglycemia due to type 2 diabetes mellitus Qualifiers: Diabetes mellitus 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 exterminator insulin use: with halfway use Qualified Code(s): E11.65 - Type 2 diabetes mellitus with hyperglycemia; 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 Is this a current diagnosis for this admission?: Yes Plan: Is a sliding scale (6) Pulmonary edema Qualifiers: Chronicity: acute Qualified Code(s): J81.0 - Acute pulmonary edema Is this a current diagnosis for this admission?: Yes Plan: Currently all resolved (7) Respiratory failure with hypoxia Qualifiers: Chronicity: acute Qualified Code(s): J96.01 - Acute respiratory failure w ith hypoxia Is this a current diagnosis for this admission?: Yes Plan: Currently ABGs all stable Put back on a nasal cannula - Time Time Spent with patient: 25-34 minutes Medications reviewed and adjusted accordingly: Yes Anticipated discharge: Home Within: Other - Plan Summary Plan Summary: Discussed with the patient's and the patient's on the bedside Try to wean off of the nitro drip
[2019-01-17] MEDS: METOPROLOL SUCCINATE 25 MG TAB.SR.24H PO SCH (13:20)
[2019-01-17] MEDS: ISOSORBIDE MONONITRATE 30 MG TAB.ER.24H PO SCH (13:21)
--- NOTE | 2019-01-17 21:58 | Progress Note ---
Provider Note Provider Note: CARDIOLOGY PROGRESS NOTE by Dr. Tawnya Hough on 01/17/2019 SUBJECTIVE: The patient has no further chest tightness. He has no PND orthopnea. There is no shortness of breath. He still has cough with some scanty sputum production. There is no wheezing. There is no leg edema. There is no palpitations. There is no arrhythmia seen on the monitor. There is no bleeding on full dose Lovenox. There is no TIA CVA symptoms. Note his renal function is no normal. He is off the BiPAP. Also his troponin is trending down PHYSICAL 80 examination: The patient is morbidly obese. At present no acute distress. Selected Entries 01/17/19 11:24 Temperature 98.9 F Temperature Oral Source Pulse Rate [ 88 Right Finger] Respiratory 18 Rate Blood Pressure 118/81 [Right Upper Arm] Blood Pressure 93 Mean [Right Upper Arm] Blood Pressure Supine Position [Right Upper Arm] O2 Sat by Pulse 98 Oximetry Oxygen Delivery Nasal Cannula Method ( includes room air) Oxygen Flow 5 Rate EYES: Pupils are equal round regular reactive to light accommodation. Extraocular movements are normal. There is no conjunctival pallor. There is no scleral icterus. There is no conjunctival pallor. EARS: Tympanic membranes are intact. External auditory canals are clear. NOSE: NASAL MUCOUS MEMBRANES ARE MOIST. THERE IS NO INFLAMMATION OF THE NASAL MUCOUS MEMBRANE. Mouth: Mucous membranes of the mouth dry. There is no ulcers in the tongue or mouth. There is no bleeding from the gums. THROAT: There is no redness of the oropharynx. There is no exudates. SKIN: There is no skin rashes or skin lesions. There is no particular ecchymosis. LUNGS: There is diminished air entry prolonged expiration. There is dry crackles in bases left more than right consistent with pneumonia. There is no rales of CHF. There is no rhonchi or wheezing. There is no chest wall tenderness on palpation. HEART: S1-S2 is heard. There is no S3 gallop. There is no S4 gallop. Systolic murmur left sternal border and the apex there is no rub. ABDOMEN: Is obese. Nontender. There is no hepatospleno megaly. Bowel sounds are well heard. There is no tender areas of masses. EXTREMITIES: Femorals are deep. Femorals are diminished. There is no femoral bruits. Leg pulses are diminished. There is no pedal edema. There is no DVT or cellulitis. There is no calf tenderness. 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 PSYCHIATRIC: The patient judgment and insight are intact. His affect is normal. The patient is EKG shows sinus rhythm no acute changes. Probable left atrial abnormality. Labs- All tests 24 hr 01/17/19 01/17/19 01/17/19 03:33 03:33 03:33 WBC 10.1 RBC 4.28 L Hgb 12.4 L D Hct 35.6 L MCV 83 MCH 28.9 MCHC 34.8 RDW 13.9 Plt Count 247 Seg Neutrophils % 78.2 H Lymphocytes % 13.0 Monocytes % 7.1 Eosinophils % 0.7 Basophils % 1.0 Absolute Neutrophils 7.9 Absolute Lymphocytes 1.3 Absolute Monocytes 0.7 Absolute Eosinophils 0.1 Absolute Basophils 0.1 Carbonic Acid HCO3/H2CO3 Ratio ABG pH ABG pCO2 ABG pO2 ABG HCO3 ABG Total CO2 ABG O2 Saturation ABG Base Excess FiO2 Sodium 135.5 L Potassium 4.0 Chloride 105 Carbon Dioxide 24 Anion Gap 7 BUN 19 Creatinine 0.88 Est GFR ( Amer) > 60 Est GFR (Non-Af Amer) > 60 Glucose 223 H POC Glucose Hemoglobin A1c % 10.2 H Calcium 8.1 L Phosphorus 2.6 Magnesium 1.8 Total Bilirubin 0.9 Direct Bilirubin 0.3 Neonat Total Bilirubin Not Reportable Neonat Direct Bilirubin Not Reportable Neonat Indirect Bili Not Reportable AST 18 ALT 21 Alkaline Phosphatase 84 Troponin I Total Protein 5.6 L Albumin 3.2 L Triglycerides 120 Cholesterol 165.48 LDL Cholesterol Direct 114 H VLDL Cholesterol 24.0 HDL Cholesterol 28 L 01/17/19 01/17/19 01/17/19 03:33 07:52 10:15 WBC RBC Hgb Hct MCV MCH MCHC RDW Plt Count Seg Neutrophils % Lymphocytes % Monocytes % Eosinophils % Basophils % Absolute Neutrophils Absolute Lymphocytes Absolute Monocytes Absolute Eosinophils Absolute Basophils Carbonic Acid 1.11 HCO3/H2CO3 Ratio 20:1 ABG pH 7.41 ABG pCO2 37.0 ABG pO2 82.5 ABG HCO3 22.9 ABG Total CO2 24.0 ABG O2 Saturation 96.3 ABG Base Excess -1.3 FiO2 6L Sodium Potassium Chloride Carbon Dioxide Anion Gap BUN Creatinine Est GFR ( Amer) Est GFR (Non-Af Amer) Glucose POC Glucose 240 H Hemoglobin A1c % Calcium Phosphorus Magnesium Total Bilirubin Direct Bilirubin Neonat Total Bilirubin Neonat Direct Bilirubin Neonat Indirect Bili AST ALT Alkaline Phosphatase Troponin I 0.525 Total Protein Albumin Triglycerides Cholesterol LDL Cholesterol Direct VLDL Cholesterol HDL Cholesterol 01/17/19 21:02 WBC RBC Hgb Hct MCV MCH MCHC RDW Plt Count Seg Neutrophils % Lymphocytes % Monocytes % Eosinophils % Basophils % Absolute Neutrophils Absolute Lymphocytes Absolute Monocytes Absolute Eosinophils Absolute Basophils Carbonic Acid HCO3/H2CO3 Ratio ABG pH ABG pCO2 ABG pO2 ABG HCO3 ABG Total CO2 ABG O2 Saturation ABG Base Excess FiO2 Sodium Potassium Chloride Carbon Dioxide Anion Gap BUN Creatinine Est GFR ( Amer) Est GFR (Non-Af Amer) Glucose POC Glucose 306 H Hemoglobin A1c % Calcium Phosphorus Magnesium Total Bilirubin Direct Bilirubin Neonat Total Bilirubin Neonat Direct Bilirubin Neonat Indirect Bili AST ALT Alkaline Phosphatase Troponin I Total Protein Albumin Triglycerides Cholesterol LDL Cholesterol Direct VLDL Cholesterol HDL Cholesterol Chest X-Ray 01/16/19 05:42 IMPRESSION: Moderate mixed interstitial and airpace opacities. Differential diagnosis includes pulmonary edema, multifocal pneumonia, and chronic interstitial lung disease. Chest/Abdomen CTA 01/16/19 09:21 IMPRESSION: Alveolar and interstitial pulmonary edema with trace pleural effusions No CT angio evidence of acute pulmonary emboli. Mild mediastinal adenopathy Neck CTA 01/16/19 09:21 IMPRESSION: NORMAL CTA OF THE EXTRA-CRANIAL CAROTID AND VERTEBRAL ARTERIES. No CTA evidence of jugular vein thrombosis or prevertebral space abscess Chest X-Ray 01/17/19 00:00 IMPRESSION: IMPROVEMENT IN THE FINDINGS OF CONGESTIVE HEART FAILURE. MY INTERPRETATION: Is that the patient's has subtle bilateral lower lobe pneumonia left greater than right. IMPRESSION/RECOMMENDATION: . Patient with chest tightness intermittent with elevated troponin need to make an assumption that this is a non-ST elevation NH. Note the patient has no anginal symptoms. And also the patient's troponin is trending down. Would recommend to stop the patient's IV nitroglycerin and place the patient on oral nitrates. Continue aspirin. Start the patient on metoprolol and increase as tolerated. Continue statin. Also continue the patient's full dose anticoagulation with Lovenox for at least 48 hours. Later when the patient stable would recommend getting an IV Lexiscan Cardiolite stress test. 2. Bilateral pneumonia: Continue antibiotics. 3. COPD: With possible acute exacerbation. Continue inhalation therapy. Next 4. Clinically no evidence of pulmonary edema or CHF. In fact the patient seems dehydrated. We will increase the patient's IV fluids to 70 mL/h. 5. Diabetes mellitus [id number]. Continue antidiabetic regimen and serial Accu-Cheks determinations. 6. Hypertension: Blood pressure seems to be well controlled. 7. Hyperlipidemia: Continue statins also would recommend podiatry consult for dietary education for the patient. 8. Possible right upper molar abscess. Continue antibiotics. 9. Tobacco abuse disorder: Ill effects of tobacco discussed with patient recommend full resolve and action to stop smoking. Smoking cessation counseling done spent 3 minutes on this. 10. Morbid obesity. WILL recheck the patient is EKG and troponin in the morning. Continue current medication as mentioned above. Discussed with Dr. Walter covering for Dr. Alegre. Medical decision making is of high complexity. 40 minutes spent on this patient with more than 50% of time spent in direct patient care. Will follow.
[2019-01-18] MEDS: MORPHINE SULFATE 10 MG/ML INJ IV PRN ×4 (04:28→20:43)
[2019-01-18] MEDS: PANTOPRAZOLE SODIUM 40 MG TABLET.DR PO SCH (05:47)
[2019-01-18] MEDS: INSULIN LISPRO 100 UNIT/ML 3 ML VIAL SUBCUT SCH ×4 (07:34→21:53)
--- NOTE | 2019-01-18 09:28 | EKG REPORT ---
SEVERITY:- ABNORMAL ECG - SINUS TACHYCARDIA PROBABLE LEFT ATRIAL ABNORMALITY LEFT BUNDLE BRANCH BLOCK NONSPECIFIC INFEROLATERAL ST-T CHANGES : Confirmed by: Fahad Fajardo MD 18-Jan-2019 09:28:20
[2019-01-18] MEDS: ENOXAPARIN SODIUM INJ 150 MG/1 ML DISP.SYRIN SUBCUT SCH ×2 (09:50→21:53)
[2019-01-18] MEDS: ISOSORBIDE MONONITRATE 30 MG TAB.ER.24H PO SCH (09:50)
[2019-01-18] MEDS: LEVOFLOXACIN 500 MG/D5W RTU 500 MG/100 ML RTUPB IV SCH (09:50)
--- NOTE | 2019-01-18 09:50 | PDOC PROGRESS REPORT ---
Subjective Progress Note for:: 01/18/19 Subjective:: Patient is feeling much better Patient is denied any chest pain to than any shortness of the breath Patient use the BiPAP at night but during the daytime use the nasal cannula Patients might need a sleep study as an outpatient Patient is also scheduled for the stress test per Dr. Armendariz Reason For Visit: MULTIOBAR PNEUMONIA WITH ACUTE RESPIRATORY Physical Exam Vital Signs: Temp Pulse Resp BP Pulse Ox 97.4 F 98 20 116/64 95 01/18/19 03:31 01/18/19 09:16 01/18/19 09:16 01/18/19 03:31 01/18/19 09:16 Intake & Output 01/17/19 01/18/19 01/19/19 06:59 06:59 06:59 Intake Total 1376 1440 Output Total 2600 Balance -1224 1440 Weight 139.3 kg General appearance: PRESENT: no acute distress, well-developed, well-nourished Head exam: PRESENT: atraumatic, normocephalic Eye exam: PRESENT: conjunctiva pink, EOMI, PERRLA. ABSENT: scleral icterus Ear exam: PRESENT: normal external ear exam Mouth exam: PRESENT: moist, tongue midline Neck exam: PRESENT: full ROM. ABSENT: carotid bruit, JVD, lymphadenopathy, thyromegaly Respiratory exam: PRESENT: clear to auscultation claudette Cardiovascular exam: PRESENT: RRR. ABSENT: diastolic murmur, rubs, systolic murmur Pulses: PRESENT: normal dorsalis pedis pul, +2 pedal pulses bilateral Vascular exam: PRESENT: normal capillary refill GI/Abdominal exam: PRESENT: normal bowel sounds, soft. ABSENT: distended, guard ing, mass, organolmegaly, rebound, tenderness Rectal exam: PRESENT: deferred Extremities exam: ABSENT: pedal edema Musculoskeletal exam: PRESENT: ambulatory Neurological exam: PRESENT: alert, awake, oriented to person, oriented to place, oriented to time, oriented to situation, CN II-XII grossly intact. ABSENT: motor sensory deficit Psychiatric exam: PRESENT: appropriate affect, normal mood. ABSENT: homicidal ideation, suicidal ideation Skin exam: PRESENT: dry, intact, warm. ABSENT: cyanosis, rash Results Laboratory Results: 01/17/19 03:33 01/17/19 03:33 01/17/19 10:15 Carbonic Acid 1.11 HCO3/H2CO3 Ratio 20:1 ABG pH 7.41 ABG pCO2 37.0 ABG pO2 82.5 ABG HCO3 22.9 ABG O2 Saturation 96.3 ABG Base Excess -1.3 FiO2 6L 01/16/19 01/16/19 01/16/19 11:32 11:32 11:32 Creatine Kinase 132 CK-MB (CK-2) 4.40 Troponin I 0.335 01/16/19 01/16/19 01/17/19 18:47 18:47 03:33 Creatine Kinase 101 CK-MB (CK-2) 4.02 Troponin I 0.691 0.525 Impressions: Chest/Abdomen CTA 01/16/19 09:21 IMPRESSION: Alveolar and interstitial pulmonary edema with trace pleural effusions No CT angio evidence of acute pulmonary emboli. Mild mediastinal adenopathy Neck CTA 01/16/19 09:21 IMPRESSION: NORMAL CTA OF THE EXTRA-CRANIAL CAROTID AND VERTEBRAL ARTERIES. No CTA evidence of jugular vein thrombosis or prevertebral space abscess Chest X-Ray 01/17/19 00:00 IMPRESSION: IMPROVEMENT IN THE FINDINGS OF CONGESTIVE HEART FAILURE. Assessment & Plan - Diagnosis (1) Multifocal pneumonia Is this a current diagnosis for this admission?: Yes Plan: With the history of the smoking underlying possible COPD with chest x-ray still consistent with the possible pneumonia with elevated white counts we will continues to IV antibiotic (2) Elevated troponin Is this a current diagnosis for this admission?: Yes Plan: #1 non-ST DC currently follow with the cardiology (3) Acute renal failure Qualifiers: Acute renal failure type: unspecified Qualified Code(s): N17.9 - Acute kidney failure, unspecified Is this a current diagnosis for this admission?: Yes Plan: Currently all stable (4) HTN (hypertension) Qualifiers: Hypertension type: essential hypertension Qualified Code(s): I10 - Essential (primary) hypertension Is this a current diagnosis for this admission?: Yes Plan: Clear all stable (5) Hyperglycemia due to type 2 diabetes mellitus Qualifiers: Diabetes mellitus nursing home insulin use: with intermediate manager use Qualified Code(s): E11.65 - Type 2 diabetes mellitus with hyperglycemia; 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 Is this a current diagnosis for this admission?: Yes Plan: Is a sliding scale (6) Pulmonary edema Qualifiers: Chronicity: acute Qualified Code(s): J81.0 - Acute pulmonary edema Is this a current diagnosis for this admission?: Yes Plan: Currently all resolved (7) Respiratory failure with hypoxia Qualifiers: Chronicity: acute Qualified Code(s): J96.01 - Acute respiratory failure with hypoxia Is this a current diagnosis for this admission?: Yes Plan: Currently ABGs all stable Put back on a nasal cannula (8) Non-ST elevation DC (NSTEMI) Is this a current diagnosis for this admission?: Yes Plan: continue to current medications follow with the cardiology - Time Time Spent with patient: 15-24 minutes Medications reviewed and adjusted accordingly: Yes Anticipated discharge: Other Within: Other - Plan Summary Plan Summary: Patient is feeling much better much improving
[2019-01-18] MEDS: GUAIFENESIN 600 MG TABLET.SA PO SCH ×2 (09:51→21:53)
[2019-01-18] MEDS: METOPROLOL SUCCINATE 25 MG TAB.SR.24H PO SCH (09:51)
[2019-01-18] MEDS: CEFEPIME HCL 2 GM in DEXTROSE 5%-WATER 50 ML IV SCH ×2 (09:51→21:54)
--- NOTE | 2019-01-18 22:55 | Progress Note ---
Provider Note Provider Note: CARDIOLOGY PROGRESS NOTE by Dr. Tawnya Hough on 01/18/2019. SUBJECTIVE: The patient has no further chest pain or chest tightness. He does have orthopnea but no PND. There is no arrhythmia seen on the monitor. He has trace leg edema. There is no TIA CVA symptoms. He is off the BiPAP and is on nasal cannula. PHYSICAL examination: The patient moderate to severely obese. At present in no acute distress. Selected Entries 01/17/19 11:24 Temperature 98.9 F Temperature Oral Source Pulse Rate [ 88 Right Finger] Respiratory 18 Rate Blood Pressure 118/81 [Right Upper Arm] Blood Pressure 93 Mean [Right Upper Arm] Blood Pressure Supine Position [Right Upper Arm] O2 Sat by Pulse 98 Oximetry Oxygen Delivery Nasal Cannula Method ( includes room air) Oxygen Flow 5 Rate EYES: Pupils are equal round regular reactive to light accommodation. Extraocular movements are normal. There is no conjunctival pallor. There is no scleral icterus. There is no conjunctival pallor. EARS: Tympanic membranes are intact. External auditory canals are clear. NOSE: NASAL MUCOUS MEMBRANES ARE MOIST. THERE IS NO INFLAMMATION OF THE NASAL MUCOUS MEMBRANE. Mouth: Mucous membranes of the mouth dry. There is no ulcers in the tongue or mouth. There is no bleeding from the gums. THROAT: There is no redness of the oropharynx. There is no exudates. SKIN: There is no skin rashes or skin lesions. There is no particular ecchymosis. LUNGS: There is diminished air entry prolonged expiration. There is dry crackles in bases left more than right consistent with pneumonia. There is no rales of CHF. There is no rhonchi or wheezing. There is no chest wall tenderness on palpation. HEART: S1-S2 is heard. There is no S3 gallop. There is no S4 gallop. Systolic murmur left sternal border and the apex there is no rub. ABDOMEN: Is obese. Nontender. There is no hepatospleno megaly. Bowel sounds are well heard. There is no tender areas of masses. EXTREMITIES: Femorals are deep. Femorals are diminished. There is no femoral bruits. Leg pulses are diminished. There is no pedal edema. There is no DVT or cellulitis. There is no calf tenderness. PAVER LAYER: The patient is conscious awake alert oriented x3 with no focal deficits. PSYCHIATRIC: The patient judgment and insight are intact. His affect is normal Chest X-Ray 01/16/19 05:42 IMPRESSION: Moderate mixed interstitial and airpace opacities. Differential diagnosis includes pulmonary edema, multifocal pneumonia, and chronic interstitial lung disease. Chest/Abdomen CTA 01/16/19 09:21 IMPRESSION: Alveolar and interstitial pulmonary edema with trace pleural effusions No CT angio evidence of acute pulmonary emboli. Mild mediastinal adenopathy Neck CTA 01/16/19 09:21 IMPRESSION: NORMAL CTA OF THE EXTRA-CRANIAL CAROTID AND VERTEBRAL ARTERIES. No CTA evidence of jugular vein thrombosis or prevertebral space abscess Chest X-Ray 01/17/19 00:00 IMPRESSION: IMPROVEMENT IN THE FINDINGS OF CONGESTIVE HEART FAILURE. Labs- Entire Visit 01/16/19 01/16/19 01/16/19 05:50 05:50 05:50 WBC 16.0 H RBC 5.04 Hgb 14.6 Hct 42.5 MCV 84 MCH 28.9 MCHC 34.2 RDW 13.5 Plt Count 302 Seg Neutrophils % 89.4 H Lymphocytes % 6.0 L Monocytes % 3.9 Eosinophils % 0.4 Basophils % 0.3 Absolute Neutrophils 14.3 H Absolute Lymphocytes 1.0 Absolute Monocytes 0.6 Absolute Eosinophils 0.1 Absolute Basophils 0.0 PT 13.0 INR 0.98 APTT 23.9 Carbonic Acid HCO3/H2CO3 Ratio ABG pH ABG pCO2 ABG pO2 ABG HCO3 ABG Total CO2 ABG O2 Saturation ABG Base Excess VBG pH VBG pCO2 VBG HCO3 VBG Base Excess FiO2 Sodium 137.3 Potassium 4.5 Chloride 104 Carbon Dioxide 23 Anion Gap 10 BUN 24 H Creatinine 1.32 H Est GFR ( Amer) > 60 Est GFR (Non-Af Amer) 58 L Glucose 378 H POC Glucose Hemoglobin A1c % Lactic Acid Calcium 9.0 Phosphorus Magnesium Total Bilirubin 0.5 Direct Bilirubin 0.3 Neonat Total Bilirubin Not Reportable Neonat Direct Bilirubin Not Reportable Neonat Indirect Bili Not Reportable AST 20 ALT 21 Alkaline Phosphatase 126 Creatine Kinase CK-MB (CK-2) Troponin I Total Protein 6.9 Albumin 4.1 Triglycerides Cholesterol LDL Cholesterol Direct VLDL Cholesterol HDL Cholesterol Blood Type Antibody Screen 01/16/19 01/16/19 01/16/19 05:50 05:50 05:50 WBC RBC Hgb Hct MCV MCH MCHC RDW Plt Count Seg Neutrophils % Lymphocytes % Monocytes % Eosinophils % Basophils % Absolute Neutrophils Absolute Lymphocytes Absolute Monocytes Absolute Eosinophils Absolute Basophils PT INR APTT Carbonic Acid HCO3/H2CO3 Ratio ABG pH ABG pCO2 ABG pO2 ABG HCO3 ABG Total CO2 ABG O2 Saturation ABG Base Excess VBG pH 7.30 VBG pCO2 45.5 VBG HCO3 21.7 VBG Base Excess -4.8 FiO2 Sodium Potassium Chloride Carbon Dioxide Anion Gap BUN Creatinine Est GFR ( Amer) Est GFR (Non-Af Amer) Glucose POC Glucose Hemoglobin A1c % Lactic Acid 1.7 Calcium Phosphorus Magnesium Total Bilirubin Direct Bilirubin Neonat Total Bilirubin Neonat Direct Bilirubin Neonat Indirect Bili AST ALT Alkaline Phosphatase Creatine Kinase CK-MB (CK-2) Troponin I Total Protein Albumin Triglycerides Cholesterol LDL Cholesterol Direct VLDL Cholesterol HDL Cholesterol Blood Type O POSITIVE Antibody Screen NEGATIVE 01/16/19 01/16/19 01/16/19 11:32 11:32 11:32 WBC RBC Hgb Hct MCV MCH MCHC RDW Plt Count Seg Neutrophils % Lymphocytes % Monocytes % Eosinophils % Basophils % Absolute Neutrophils Absolute Lymphocytes Absolute Monocytes Absolute Eosinophils Absolute Basophils PT INR APTT Carbonic Acid HCO3/H2CO3 Ratio ABG pH ABG pCO2 ABG pO2 ABG HCO3 ABG Total CO2 ABG O2 Saturation ABG Base Excess VBG pH VBG pCO2 VBG HCO3 VBG Base Excess FiO2 Sodium Potassium Chloride Carbon Dioxide Anion Gap BUN Creatinine Est GFR ( Amer) Est GFR (Non-Af Amer) Glucose POC Glucose Hemoglobin A1c % Lactic Acid Calcium Phosphorus Magnesium Total Bilirubin Direct Bilirubin Neonat Total Bilirubin Neonat Direct Bilirubin Neonat Indirect Bili AST ALT Alkaline Phosphatase Creatine Kinase 132 CK-MB (CK-2) 4.40 Troponin I 0.335 Total Protein Albumin Triglycerides Cholesterol LDL Cholesterol Direct VLDL Cholesterol HDL Cholesterol Blood Type Antibody Screen 01/16/19 01/16/19 01/16/19 18:47 18:47 19:01 WBC RBC Hgb Hct MCV MCH MCHC RDW Plt Count Seg Neutrophils % Lymphocytes % Monocytes % Eosinophils % Basophils % Absolute Neutrophils Absolute Lymphocytes Absolute Monocytes Absolute Eosinophils Absolute Basophils PT INR APTT Carbonic Acid HCO3/H2CO3 Ratio ABG pH ABG pCO2 ABG pO2 ABG HCO3 ABG Total CO2 ABG O2 Saturation ABG Base Excess VBG pH VBG pCO2 VBG HCO3 VBG Base Excess FiO2 Sodium Potassium Chloride Carbon Dioxide Anion Gap BUN Creatinine Est GFR ( Amer) Est GFR (Non-Af Amer) Glucose POC Glucose 318 H Hemoglobin A1c % Lactic Acid Calcium Phosphorus Magnesium Total Bilirubin Direct Bilirubin Neonat Total Bilirubin Neonat Direct Bilirubin Neonat Indirect Bili AST ALT Alkaline Phosphatase Creatine Kinase 101 CK-MB (CK-2) 4.02 Troponin I 0.691 Total Protein Albumin Triglycerides Cholesterol LDL Cholesterol Direct VLDL Cholesterol HDL Cholesterol Blood Type Antibody Screen 01/17/19 01/17/19 01/17/19 03:33 03:33 03:33 WBC 10.1 RBC 4.28 L Hgb 12.4 L D Hct 35.6 L MCV 83 MCH 28.9 MCHC 34.8 RDW 13.9 Plt Count 247 Seg Neutrophils % 78.2 H Lymphocytes % 13.0 Monocytes % 7.1 Eosinophils % 0.7 Basophils % 1.0 Absolute Neutrophils 7.9 Absolute Lymphocytes 1.3 Absolute Monocytes 0.7 Absolute Eosinophils 0.1 Absolute Basophils 0.1 PT INR APTT Carbonic Acid HCO3/H2CO3 Ratio ABG pH ABG pCO2 ABG pO2 ABG HCO3 ABG Total CO2 ABG O2 Saturation ABG Base Excess VBG pH VBG pCO2 VBG HCO3 VBG Base Excess FiO2 Sodium 135.5 L Potassium 4.0 Chloride 105 Carbon Dioxide 24 Anion Gap 7 BUN 19 Creatinine 0.88 Est GFR ( Amer) > 60 Est GFR (Non-Af Amer) > 60 Glucose 223 H POC Glucose Hemoglobin A1c % 10.2 H Lactic Acid Calcium 8.1 L Phosphorus 2.6 Magnesium 1.8 Total Bilirubin 0.9 Direct Bilirubin 0.3 Neonat Total Bilirubin Not Reportable Neonat Direct Bilirubin Not Reportable Neonat Indirect Bili Not Reportable AST 18 ALT 21 Alkaline Phosphatase 84 Creatine Kinase CK-MB (CK-2) Troponin I Total Protein 5.6 L Albumin 3.2 L Triglycerides 120 Cholesterol 165.48 LDL Cholesterol Direct 114 H VLDL Cholesterol 24.0 HDL Cholesterol 28 L Blood Type Antibody Screen 01/17/19 01/17/19 01/17/19 03:33 07:52 10:15 WBC RBC Hgb Hct MCV MCH MCHC RDW Plt Count Seg Neutrophils % Lymphocytes % Monocytes % Eosinophils % Basophils % Absolute Neutrophils Absolute Lymphocytes Absolute Monocytes Absolute Eosinophils Absolute Basophils PT INR APTT Carbonic Acid 1.11 HCO3/H2CO3 Ratio 20:1 ABG pH 7.41 ABG pCO2 37.0 ABG pO2 82.5 ABG HCO3 22.9 ABG Total CO2 24.0 ABG O2 Saturation 96.3 ABG Base Excess -1.3 VBG pH VBG pCO2 VBG HCO3 VBG Base Excess FiO2 6L Sodium Potassium Chloride Carbon Dioxide Anion Gap BUN Creatinine Est GFR ( Amer) Est GFR (Non-Af Amer) Glucose POC Glucose 240 H Hemoglobin A1c % Lactic Acid Calcium Phosphorus Magnesium Total Bilirubin Direct Bilirubin Neonat Total Bilirubin Neonat Direct Bilirubin Neonat Indirect Bili AST ALT Alkaline Phosphatase Creatine Kinase CK-MB (CK-2) Troponin I 0.525 Total Protein Albumin Triglycerides Cholesterol LDL Cholesterol Direct VLDL Cholesterol HDL Cholesterol Blood Type Antibody Screen 01/17/19 01/18/19 01/18/19 21:02 11:19 15:57 WBC RBC Hgb Hct MCV MCH MCHC RDW Plt Count Seg Neutrophils % Lymphocytes % Monocytes % Eosinophils % Basophils % Absolute Neutrophils Absolute Lymphocytes Absolute Monocytes Absolute Eosinophils Absolute Basophils PT INR APTT Carbonic Acid HCO3/H2CO3 Ratio ABG pH ABG pCO2 ABG pO2 ABG HCO3 ABG Total CO2 ABG O2 Saturation ABG Base Excess VBG pH VBG pCO2 VBG HCO3 VBG Base Excess FiO2 Sodium Potassium Chloride Carbon Dioxide Anion Gap BUN Creatinine Est GFR ( Amer) Est GFR (Non-Af Amer) Glucose POC Glucose 306 H 382 H 307 H Hemoglobin A1c % Lactic Acid Calcium Phosphorus Magnesium Total Bilirubin Direct Bilirubin Neonat Total Bilirubin Neonat Direct Bilirubin Neonat Indirect Bili AST ALT Alkaline Phosphatase Creatine Kinase CK-MB (CK-2) Troponin I Total Protein Albumin Triglycerides Cholesterol LDL Cholesterol Direct VLDL Cholesterol HDL Cholesterol Blood Type Antibody Screen IMPRESSION/RECOMMENDATION: 1. Patient with chest tightness intermittent with elevated troponin need to make an assumption that this is a non-ST elevation MA. Note the patient present, since admission, has no anginal symptoms. Continue IV nitroglycerin for now. Continue aspirin. Start the patient on metoprolol and increase as tolerated. Continue statin. Also continue the patient's full dose anticoagulation with Lovenox for at least 48 hours. Later when the patient stable would recommend getting an IV Lexiscan Cardiolite stress test. 2. Bilateral pneumonia: Continue antibiotics. 3. COPD: With possible acute exacerbation. Continue inhalation therapy. Next 4. Clinically no evidence of pulmonary edema or CHF. In fact the patient seems dehydrated. We will increase the patient's IV fluids to 70 mL/h. 5. Diabetes mellitus [id number]. Continue antidiabetic regimen and serial Accu-Cheks determinations. 6. Hypertension: Blood pressure seems to be well controlled. 7. Hyperlipidemia: Continue statins also would recommend podiatry consult for dietary education for the patient. 8. Possible right upper molar abscess. Continue antibiotics. 9. Tobacco abuse disorder: Ill effects of tobacco discussed with patient recommend full resolve and action to stop smoking. Smoking cessation counseling done spent 3 minutes on this. 10. Morbid obesity. WILL recheck the patient is EKG and troponin in the morning. Continue current medication as mentioned above. Discussed with Dr. Walter covering for Dr. Alegre. Medical decision making is of high complexity. 40 minutes spent on this patient with more than 50% of time spent in direct patient care. Will follow. .
[2019-01-18] MEDS: ACETAMINOPHEN 325 MG TABLET PO PRN (23:00)
[2019-01-19] MEDS: ACETAMINOPHEN 325 MG TABLET PO PRN ×3 (03:14→20:11)
[2019-01-19] MEDS: PANTOPRAZOLE SODIUM 40 MG TABLET.DR PO SCH (05:45)
[2019-01-19] MEDS: INSULIN LISPRO 100 UNIT/ML 3 ML VIAL SUBCUT SCH ×4 (08:15→21:48)
[2019-01-19] MEDS: METOPROLOL SUCCINATE 25 MG TAB.SR.24H PO SCH (09:55)
[2019-01-19] MEDS: GUAIFENESIN 600 MG TABLET.SA PO SCH ×2 (09:57→21:48)
[2019-01-19] MEDS: LEVOFLOXACIN 500 MG/D5W RTU 500 MG/100 ML RTUPB IV SCH (09:57)
[2019-01-19] MEDS: ISOSORBIDE MONONITRATE 30 MG TAB.ER.24H PO SCH (09:57)
[2019-01-19] MEDS: CEFEPIME HCL 2 GM in DEXTROSE 5%-WATER 50 ML IV SCH ×2 (09:58→21:48)
[2019-01-19] MEDS: ENOXAPARIN SODIUM INJ 150 MG/1 ML DISP.SYRIN SUBCUT SCH ×2 (10:04→21:49)
--- NOTE | 2019-01-19 11:58 | PDOC CONSULTATION ---
Consultation Consult Date: 01/19/19 Attending physician:: JOE CONTRERAS Provider Consulted: BAYLEE BRUCE Consult reason:: Pneumonia History of Present Illness Admission Date/PCP: 01/16/19 08:30 History of Present Illness: АННА BOWER is a 48 year old male complains of poor dentition related to earache this subsequently went down his neck and into his chest he smoked half pack a day for approximately 30 years and he smokes a several cigars daily for the last 5 years prior to his onset of this he denies shortness of breath addiction exertion occasional cough productive of yellow phlegm no hemoptysis PPD status negative dates unknown no history of chronic lung disease as a child or adolescent missed exposure to large amounts of passive smoke as a child as well as an adult he himself is smoke as stated above he is worked for 30 years in the [employer] industry and is unaware of being exposed to any potential respiratory toxins. There is one dog no recent travel he denies angina-like chest pain sleeps on 2-3 pillows no PND no nocturnal cough no edema he is unaware of any snoring he denies restless sleep nocturia unrestful sleep or excessive daytime somnolence. Past Medical History Cardiac Medical History: Reports: Hypertension EENT Medical History: Denies: Cataracts Neurological Medical History: Denies: Hemorrhagic CVA, Ischemic CVA, Migraine, Multiple Sclerosis Endocrine Medical History: Reports: Diabetes Mellitus Type 2, Obesity Renal/ Medical History: Reports: None Malignancy Medical History: Reports: None GI Medical History: Reports: Hiatal Hernia Musculoskeltal Medical History: Reports: Arthritis Psychiatric Medical History: Reports: Attention Deficit Hyperactivity Disorder, Depression, Tobacco Dependency Traumatic Medical History: Denies: Pneumothorax, Stab Wound, Traumatic Brain Injury Hematology: Denies: Sickle Cell Disease, Bleeding Tendencies Infectious Medical History: Denies: Clostridium Difficile, HIV Past Surgical History Past Surgical History: Reports: Appendectomy, Orthopedic Surgery Social History Information Source: Patient, [facility] Records Smoking Status: Current Every Day Smoker Cigarettes Packs Per Day: 1 Number of Years Smokin Last Time Smoked: 01/15/19 Passive smoke exposure as: Both Frequency of Alcohol Use: None Hx Recreational Drug Use: No Drugs: None Hx Prescription Drug Abuse: No Do you have pets?: No Have you had any respiratory illnesses as a child?: No Have you been exposed to any sick contacts recently?: No Have you had any recent respiratory illnesses?: No Have you travelled outside of [place] in the past 12 months?: No - Advance Directive Resuscitation Status: Full Code Family History Family History: DM, Hypertension, Malignancy Parental Family History Reviewed: Yes Children Family History Reviewed: Yes Sibling(s) Family History Reviewed.: Yes Medication/Allergy Home Medications: Atomoxetine HCl [Strattera] 40 mg PO DAILY 01/16/19 Buprenorphine HCl/Naloxone HCl [Buprenorphin-Naloxon 8-2 mg Sl] 1 each SL Q12 01/16/19 Hum Insulin NPH/Reg Insulin Hm [Novolin 70-30 100 Unit/Ml Vial] 50 unit SQ BID 01/16/19 Sildenafil Citrate [Revatio 20 mg Tablet] 40 mg PO ASDIR PRN MDD 100 mg 01/16/19 Allergies/Adverse Reactions: No Known Allergies Allergy (Verified 04/22/18 17:06) Review of Systems Constitutional: PRESENT: fatigue, weakness, weight loss Eyes: ABSENT: visual disturbances Ears: ABSENT: hearing changes Nose, Mouth, and Throat: PRESENT: headache(s), mouth pain. ABSENT: vertigo Cardiovascular: PRESENT: dyspnea on exertion. ABSENT: chest pain, edema, orthropnea Respiratory: PRESENT: cough, dyspnea, sputum. ABSENT: hemoptysis Gastrointestinal: PRESENT: nausea. ABSENT: abdominal pain, bloating, coffee ground emesis, constipation, diarrhea, dysphagia, heartburn, hematemesis, hematochezia, melena, vomiting Genitourinary: ABSENT: dysuria, hematuria Musculoskeletal: ABSENT: deformity, joint swelling Integumentary: ABSENT: pruritus, rash Neurological: ABSENT: abnormal gait, abnormal movements, abnormal speech, confusion, focal weakness, frequent falls, lack of coordination, memory loss Psychiatric: ABSENT: hallucinations, homidical ideation, suicidal ideation Endocrine: ABSENT: cold intolerance, heat intolerance Hematologic/Lymphatic: ABSENT: easy bruising Allergic/Immunologic: PRESENT: seasonal rhinorrhea Physical Exam Vital Signs: Temp Pulse Resp BP Pulse Ox 97.7 F 64 20 126/68 H 98 01/19/19 03:08 01/19/19 07:00 01/19/19 03:08 01/19/19 03:08 01/19/19 03:08 Intake & Output 01/18/19 01/19/19 01/20/19 06:59 06:59 06:59 Intake Total 1440 1280 Balance 1440 1280 Weight 139.3 kg 138.5 kg General appearance: PRESENT: no acute distress, cooperative, disheveled, morbidly obese Head exam: PRESENT: atraumatic, normocephalic Eye exam: PRESENT: conjunctiva pale, EOMI. ABSENT: nystagmus, periorbital swell ing, scleral icterus Mouth exam: PRESENT: moist, neck supple, tongue midline, other - [place] 3 Teeth exam: PRESENT: poor dentation Neck exam: ABSENT: carotid bruit, full ROM, JVD, lymphadenopathy, meningismus, tenderness, thyromegaly, tracheal deviation, tracheostomy, other Respiratory exam: PRESENT: decreased breath sounds, prolonged expiratory phas, rhonchi, unlabored. ABSENT: retraction, tachypnea Cardiovascular exam: PRESENT: RRR, +S1, +S2. ABSENT: tachycardia Pulses: PRESENT: normal radial pulses GI/Abdominal exam: PRESENT: soft. ABSENT: mass, tenderness Extremities exam: ABSENT: calf tenderness, clubbing, joint swelling Musculoskeletal exam: ABSENT: deformity, dislocation Neurological exam: PRESENT: alert, awake Psychiatric exam: PRESENT: appropriate affect Skin exam: PRESENT: dry, warm Results Laboratory Results: 01/17/19 03:33 01/17/19 03:33 01/16/19 01/16/19 01/16/19 11:32 11:32 11:32 Creatine Kinase 132 CK-MB (CK-2) 4.40 Troponin I 0.335 01/16/19 01/16/19 01/17/19 18:47 18:47 03:33 Creatine Kinase 101 CK-MB (CK-2) 4.02 Troponin I 0.691 0.525 Impressions: Chest/Abdomen CTA 01/16/19 09:21 IMPRESSION: Alveolar and interstitial pulmonary edema with trace pleural effusions No CT angio evidence of acute pulmonary emboli. Mild mediastinal adenopathy Neck CTA 01/16/19 09:21 IMPRESSION: NORMAL CTA OF THE EXTRA-CRANIAL CAROTID AND VERTEBRAL ARTERIES. No CTA evidence of jugular vein thrombosis or prevertebral space abscess Chest X-Ray 01/17/19 00:00 IMPRESSION: IMPROVEMENT IN THE FINDINGS OF CONGESTIVE HEART FAILURE. Assessment & Plan - Diagnosis (1) Morbid (severe) obesity due to excess calories Is this a current diagnosis for this admission?: Yes Plan: Consider nutritional consult (2) Multifocal pneumonia Is this a current diagnosis for this admission?: Yes Plan: Due to chronic sinusitis and poor dentition (3) Respiratory failure with hypoxia Qualifiers: Chronicity: acute Qualified Code(s): J96.01 - Acute respiratory failure wit h hypoxia Is this a current diagnosis for this admission?: Yes Plan: Noninvasive positive pressure ventilation + oxygen
--- NOTE | 2019-01-19 18:44 | PDOC PROGRESS REPORT ---
Subjective Progress Note for:: 01/19/19 Subjective:: Patient reported improvement in his breathing. No chest pain. Coughing less. No nausea, vomiting or abdominal pain. No fever or chills. Reason For Visit: MULTIOBAR PNEUMONIA WITH ACUTE RESPIRATORY Physical Exam Vital Signs: Temp Pulse Resp BP Pulse Ox 97.6 F 85 18 114/60 98 01/19/19 17:06 01/19/19 17:06 01/19/19 17:06 01/19/19 17:06 01/19/19 17:06 Intake & Output 01/18/19 01/19/19 01/20/19 06:59 06:59 06:59 Intake Total 1440 1280 1140 Balance 1440 1280 1140 Weight 139.3 kg 138.5 kg General appearance: PRESENT: morbidly obese Head exam: PRESENT: atraumatic, normocephalic Eye exam: PRESENT: conjunctiva pink. ABSENT: scleral icterus Ear exam: PRESENT: normal external ear exam Mouth exam: PRESENT: moist Respiratory exam: PRESENT: clear to auscultation claudette Cardiovascular exam: PRESENT: RRR. ABSENT: diastolic murmur, rubs, systolic murmur Vascular exam: ABSENT: pallor GI/Abdominal exam: PRESENT: normal bowel sounds, soft. ABSENT: distended, guarding, mass, organolmegaly, rebound, tenderness Extremities exam: ABSENT: pedal edema Musculoskeletal exam: PRESENT: normal inspection Neurological exam: PRESENT: alert, awake, oriented to person, oriented to place, oriented to time, oriented to situation, CN II-XII grossly intact. ABSENT: motor sensory deficit Psychiatric exam: PRESENT: appropriate affect, normal mood. ABSENT: homicidal ideation, suicidal ideation Skin exam: PRESENT: dry, warm Results Laboratory Results: 01/17/19 03:33 01/17/19 03:33 01/16/19 01/16/19 01/16/19 11:32 11:32 11:32 Creatine Kinase 132 CK-MB (CK-2) 4.40 Troponin I 0.335 01/16/19 01/16/19 01/17/19 18:47 18:47 03:33 Creatine Kinase 101 CK-MB (CK-2) 4.02 Troponin I 0.691 0.525 Impressions: Chest/Abdomen CTA 01/16/19 09:21 IMPRESSION: Alveolar and interstitial pulmonary edema with trace pleural effusions No CT angio evidence of acute pulmonary emboli. Mild mediastinal adenopathy Neck CTA 01/16/19 09:21 IMPRESSION: NORMAL CTA OF THE EXTRA-CRANIAL CAROTID AND VERTEBRAL ARTERIES. No CTA evidence of jugular vein thrombosis or prevertebral space abscess Chest X-Ray 01/17/19 00:00 IMPRESSION: IMPROVEMENT IN THE FINDINGS OF CONGESTIVE HEART FAILURE. Assessment & Plan - Diagnosis (1) Multifocal pneumonia Is this a current diagnosis for this admission?: Yes Plan: Continue current antibiotic therapy. pulmonary oracle adf consultant input appreciated. (2) Acute renal failure Qualifiers: Acute renal failure type: unspecified Qualified Code(s): N17.9 - Acute kidney failure, unspecified Is this a current diagnosis for this admission?: Yes Plan: Improved renal indices with IV hydration and increase oral fluid intake. (3) Non-ST elevation MS (NSTEMI) Is this a current diagnosis for this admission?: Yes Plan: Continue current medication management. Follow up with cardiology team regarding schedule for pharmacologic stress test. (4) Pulmonary edema Qualifiers: Chronicity: acute Qualified Code(s): J81.0 - Acute pulmonary edema Is this a current diagnosis for this admission?: Yes Plan: Continue noninvasive airway support as per pulmonary team input. (5) Hyperglycemia due to type 2 diabetes mellitus Qualifiers: Diabetes mellitus manager terminal insulin use: with manager terminal use Qualified Code(s): E11.65 - Type 2 diabetes mellitus with hyperglycemia; Z79.4 - extermination inspector (current) use of insulin Is this a current diagnosis for this admission?: Yes Plan: Start on preadmission insulin therapy with 70-30 Humalog [id number] at 50 units subcut bidacbs. Maintain on achs sliding scale regimen. (6) HTN (hypertension) Qualifiers: Hypertension type: essential hypertension Qualified Code(s): I10 - Essential (primary) hypertension Is this a current diagnosis for this admission?: Yes Plan: Continue current blood pressure medication management. (7) Patient noncompliance, general Is this a current diagnosis for this admission?: Yes Plan: Emphasized importance of care plan follow up upon discharge. (8) Morbid obesity with BMI of 40.0-44.9, adult Is this a current diagnosis for this admission?: Yes Plan: Emphasized caloric restriction and healthy diet regimen with exercise program. - Time Time Spent with patient: 25-34 minutes Medications reviewed and adjusted accordingly: Yes Anticipated discharge: Home Within: Other - Inpatient Certification Based on my medical assessment, after consideration of the patient's comorbidities, presenting symptoms, or acuity I expect that the services needed warrant INPATIENT care.: Yes I certify that my determination is in accordance with my understanding of Medicare's requirements for reasonable and necessary INPATIENT services [42 CFR 412.3e].: Yes Medical Necessity: Significant Comorbidiites Make Outpatient Treatment Too Risky, Need Close Monitoring Due to Risk of Patient Decompensation, Need For Continuous Telemetry Monitoring, Need for IV Antibiotics, Risk of Complication if Not Cared For in Hospital, Risk of Diagnosis Which Will Require Inpatient Eval/Care/Monitoring Post Hospital Care: D/C Stoker Installer Documentation - Plan Summary Plan Summary: See attending physician orders for details about care plan.
--- NOTE | 2019-01-19 21:40 | Progress Note ---
Provider Note Provider Note: CARDIOLOGY PROGRESS NOTE by Dr. Tawnya Hough on 01/19/2019. SUBJECTIVE: The patient is off IV nitroglycerin. He has no chest tightness. He has no PND orthopnea. He is off the nasal BiPAP. He denies any palpitations. There is no arrhythmia seen on the monitor. There is no TIA CVA symptoms. PHYSICAL EXAMINATION: The patient is moderate to severely obese. In no acute distress. Selected Entries 01/19/19 08:38 Temperature 98.0 F Temperature Oral Source Pulse Rate 97 Respiratory 20 Rate Blood Pressure 132/70 H Blood Pressure 90 Mean BP Location Left Arm BP Position Supine O2 Sat by Pulse 97 Oximetry Oxygen Flow 2.00 Rate Oxygen Delivery Nasal Cannula Method EYES: Pupils are equal round regular reactive to light accommodation. Extraocular movements are normal. There is no conjunctival pallor. There is no scleral icterus. There is no conjunctival pallor. EARS: Tympanic membranes are intact. External auditory canals are clear. NOSE: NASAL MUCOUS MEMBRANES ARE MOIST. THERE IS NO INFLAMMATION OF THE NASAL MUCOUS MEMBRANE. Mouth: Mucous membranes of the mouth dry. There is no ulcers in the tongue or mouth. There is no bleeding from the gums. THROAT: There is no redness of the oropharynx. There is no exudates. SKIN: There is no skin rashes or skin lesions. There is no particular ecchymosis. LUNGS: There is diminished air entry prolonged expiration. There is dry crackles in bases left more than right consistent with pneumonia. There is no rales of CHF. There is no rhonchi or wheezing. There is no chest wall tenderness on palpation. HEART: S1-S2 is heard. There is no S3 gallop. There is no S4 gallop. Systolic murmur left sternal border and the apex there is no rub. ABDOMEN: Is obese. Nontender. There is no hepatospleno megaly. Bowel sounds are well heard. There is no tender areas of masses. EXTREMITIES: Femorals are deep. Femorals are diminished. There is no femoral bruits. Leg pulses are diminished. There is no pedal edema. There is no DVT or cellulitis. There is no calf tenderness. ALLERGY PHYSICIAN: The patient is conscious awake alert oriented x3 with no focal deficits. PSYCHIATRIC: The patient judgment and insight are intact. His affect is normal. Labs reviewed. Note the troponin is trending down. IMPRESSION/RECOMMENDATION: 1. Patient with chest tightness intermittent with elevated troponin need to make an assumption that this is a non-ST elevation [place]. Note the patient present, since admission, has no anginal symptoms. Continue IV nitroglycerin for now. Continue aspirin. Start the patient on metoprolol and increase as tolerated. Continue statin. Also continue the patient's full dose anticoagulation with Lovenox for at least 48 hours. Later when the patient stable would recommend getting an IV Lexiscan Cardiolite stress test. 2. Bilateral pneumonia: Continue antibiotics. 3. COPD: With possible acute exacerbation. Continue inhalation therapy. Next 4. Clinically no evidence of pulmonary edema or CHF. In fact the patient seems dehydrated. We will increase the patient's IV fluids to 70 mL/h. 5. Diabetes mellitus [id number]. Continue antidiabetic regimen and serial Accu-Cheks determinations. 6. Hypertension: Blood pressure seems to be well controlled. 7. Hyperlipidemia: Continue statins also would recommend podiatry consult for dietary education for the patient. 8. Possible right upper molar abscess. Continue antibiotics. 9. Tobacco abuse disorder: Ill effects of tobacco discussed with patient recommend full resolve and action to stop smoking. Smoking cessation counseling done spent 3 minutes on this. 10. Morbid obesity. WILL recheck the patient is EKG and troponin in the morning. Continue current medication as mentioned above. Discussed with the attending physician. Medical decision making is of high complexity. 40 minutes spent on this patient with more than 50% of time spent in direct patient care. Will follow. .
[2019-01-20] MEDS: PANTOPRAZOLE SODIUM 40 MG TABLET.DR PO SCH (05:30)
[2019-01-20] MEDS: ACETAMINOPHEN 325 MG TABLET PO PRN ×2 (05:30→22:10)
[2019-01-20] MEDS: HUM INSULIN NPH/REG INSULIN HM 100 UNIT/1 ML 3 ML SUBCUT SCH ×2 (09:08→17:00)
[2019-01-20] MEDS: INSULIN LISPRO 100 UNIT/ML 3 ML VIAL SUBCUT SCH ×4 (09:11→22:08)
[2019-01-20] MEDS: ENOXAPARIN SODIUM INJ 150 MG/1 ML DISP.SYRIN SUBCUT SCH ×2 (09:13→22:11)
[2019-01-20] MEDS: GUAIFENESIN 600 MG TABLET.SA PO SCH ×2 (09:14→22:09)
[2019-01-20] MEDS: ISOSORBIDE MONONITRATE 30 MG TAB.ER.24H PO SCH (09:15)
[2019-01-20] MEDS: METOPROLOL SUCCINATE 25 MG TAB.SR.24H PO SCH (09:15)
[2019-01-20] MEDS: LEVOFLOXACIN 500 MG/D5W RTU 500 MG/100 ML RTUPB IV SCH (09:19)
[2019-01-20] MEDS: LORAZEPAM INJ 2 MG/1 ML VIAL IV PRN (09:41)
[2019-01-20] MEDS: CEFEPIME HCL 2 GM in DEXTROSE 5%-WATER 50 ML IV SCH ×2 (10:52→22:12)
--- NOTE | 2019-01-20 17:38 | PDOC PROGRESS REPORT ---
Subjective Progress Note for:: 01/20/19 Subjective:: No chest pain or difficulty with breathing. No nausea, vomiting, or abdominal pain. No fever or chills. Reason For Visit: MULTIOBAR PNEUMONIA WITH ACUTE RESPIRATORY Physical Exam Vital Signs: Temp Pulse Resp BP Pulse Ox 97.8 F 92 18 130/76 H 95 01/20/19 04:51 01/20/19 04:51 01/20/19 04:51 01/20/19 04:51 01/20/19 04:51 Intake & Output 01/19/19 01/20/19 01/21/19 06:59 06:59 06:59 Intake Total 1280 1760 Balance 1280 1760 Weight 138.5 kg 139 kg Physical Exam: General appearance: PRESENT: morbidly obese Head exam: PRESENT: atraumatic, normocephalic Eye exam: PRESENT: conjunctiva pink. ABSENT: pallor, scleral icterus Ear exam: PRESENT: normal external ear exam Mouth exam: PRESENT: moist Respiratory exam: PRESENT: clear to auscultation claudette Cardiovascular exam: PRESENT: RRR. ABSENT: diastolic murmur, rubs, systolic murmur GI/Abdominal exam: PRESENT: normal bowel sounds, soft. ABSENT: distended, guarding, mass, organomegaly, rebound, tenderness Extremities exam: ABSENT: pedal edema Musculoskeletal exam: PRESENT: normal inspection Neurological exam: PRESENT: alert, awake, oriented to person, oriented to place, oriented to time, oriented to situation, CN II-XII grossly intact. ABSENT: motor sensory deficit Psychiatric exam: PRESENT: appropriate affect, normal mood. ABSENT: homicidal ideation, suicidal ideation Skin exam: PRESENT: dry, warm Results Laboratory Results: 01/17/19 03:33 01/17/19 03:33 01/16/19 01/16/19 01/16/19 11:32 11:32 11:32 Creatine Kinase 132 CK-MB (CK-2) 4.40 Troponin I 0.335 01/16/19 01/16/19 01/17/19 18:47 18:47 03:33 Creatine Kinase 101 CK-MB (CK-2) 4.02 Troponin I 0.691 0.525 Impressions: Chest/Abdomen CTA 01/16/19 09:21 IMPRESSION: Alveolar and interstitial pulmonary edema with trace pleural effusions No CT angio evidence of acute pulmonary emboli. Mild mediastinal adenopathy Neck CTA 01/16/19 09:21 IMPRESSION: NORMAL CTA OF THE EXTRA-CRANIAL CAROTID AND VERTEBRAL ARTERIES. No CTA evidence of jugular vein thrombosis or prevertebral space abscess Chest X-Ray 01/17/19 00:00 IMPRESSION: IMPROVEMENT IN THE FINDINGS OF CONGESTIVE HEART FAILURE. Assessment & Plan - Diagnosis (1) Multifocal pneumonia Is this a current diagnosis for this admission?: Yes (2) Acute renal failure Qualifiers: Acute renal failure type: unspecified Qualified Code(s): N17.9 - Acute kidney failure, unspecified Is this a current diagnosis for this admission?: Yes (3) Non-ST elevation [place] (NSTEMI) Is this a current diagnosis for this admission?: Yes (4) Pulmonary edema Qualifiers: Chronicity: acute Qualified Code(s): J81.0 - Acute pulmonary edema Is this a current diagnosis for this admission?: Yes (5) Hyperglycemia due to type 2 diabetes mellitus Qualifiers: Diabetes mellitus nursing home insulin use: with terminologist use Qualified Code(s): E11.65 - Type 2 diabetes mellitus with hyperglycemia; Z79.4 - USP (current) use of insulin Is this a current diagnosis for this admission?: Yes (6) HTN (hypertension) Qualifiers: Hypertension type: essential hypertension Qualified Code(s): I10 - Essen tial (primary) hypertension Is this a current diagnosis for this admission?: Yes (7) Patient noncompliance, general Is this a current diagnosis for this admission?: Yes (8) Morbid obesity with BMI of 40.0-44.9, adult Is this a current diagnosis for this admission?: Yes - Time Time Spent with patient: 25-34 minutes Medications reviewed and adjusted accordingly: Yes Anticipated discharge: Home Within: Other - Inpatient Certification Based on my medical assessment, after consideration of the patient's comorbidities, presenting symptoms, or acuity I expect that the services needed warrant INPATIENT care.: Yes I certify that my determination is in accordance with my understanding of Medicare's requirements for reasonable and necessary INPATIENT services [42 CFR 412.3e].: Yes Medical Necessity: Significant Comorbidiites Make Outpatient Treatment Too Risky, Need Close Monitoring Due to Risk of Patient Decompensation, Need For Continuous Telemetry Monitoring, Need for IV Antibiotics, Risk of Complication if Not Cared For in Hospital, Risk of Diagnosis Which Will Require Inpatient Eval/Care/Monitoring Post Hospital Care: D/C Svp Monetization Documentation - Plan Summary Plan Summary: [id number] IV Levofloxacin and Cefepime coverage. Follow up on schedule for Lexiscan stress test
--- NOTE | 2019-01-20 23:23 | Progress Note ---
Provider Note Provider Note: CARDIOLOGY PROGRESS NOTE by Dr. Tawnya Hough on 01/20/2019. SUBJECTIVE: The patient has no further chest tightness. There is no shortness of breath. There is no PND orthopnea. The patient troponins trended down. Will schedule the patient for IV Lexiscan Cardiolite stress test. In view of the patient's obesity will make it a 2-day per protocol. He will have the rest study tomorrow and the stress study the after tomorrow. PHYSICAL EXAMINATION: The patient is moderately to severely obese. In no acute distress. Selected Entries 01/20/19 07:38 Temperature 97.5 F Temperature Oral Source Pulse Rate 90 Respiratory 16 Rate Blood Pressure 110/67 Blood Pressure 81 Mean BP Location Right Arm BP Position Sitting O2 Sat by Pulse 95 Oximetry Oxygen Flow 2.00 Rate Oxygen Delivery Nasal Cannula Method EYES: Pupils are equal round regular reactive to light accommodation. Extraocular movements are normal. There is no conjunctival pallor. There is no scleral icterus. There is no conjunctival pallor. EARS: Tympanic membranes are intact. External auditory canals are clear. NOSE: NASAL MUCOUS MEMBRANES ARE MOIST. THERE IS NO INFLAMMATION OF THE NASAL MUCOUS MEMBRANE. Mouth: Mucous membranes of the mouth dry. There is no ulcers in the tongue or mouth. There is no bleeding from the gums. THROAT: There is no redness of the oropharynx. There is no exudates. SKIN: There is no skin rashes or skin lesions. There is no particular ecchymosis. LUNGS: There is diminished air entry prolonged expiration. There is dry crackles in bases left more than right consistent with pneumonia. There is no rales of CHF. There is no rhonchi or wheezing. There is no chest wall tenderness on palpation. HEART: S1-S2 is heard. There is no S3 gallop. There is no S4 gallop. Systolic murmur left sternal border and the apex there is no rub. ABDOMEN: Is obese. Nontender. There is no hepatospleno megaly. Bowel sounds are well heard. There is no tender areas of masses. EXTREMITIES: Femorals are deep. Femorals are diminished. There is no femoral bruits. Leg pulses are diminished. There is no pedal edema. There is no DVT or cellulitis. There is no calf tenderness. ASSEMBLER METAL FURNITURE: The patient is conscious awake alert oriented x3 with no focal deficits. PSYCHIATRIC: The patient judgment and insight are intact. His affect is normal Labs- Entire Visit 01/16/19 01/16/19 01/16/19 05:50 05:50 05:50 WBC 16.0 H RBC 5.04 Hgb 14.6 Hct 42.5 MCV 84 MCH 28.9 MCHC 34.2 RDW 13.5 Plt Count 302 Seg Neutrophils % 89.4 H Lymphocytes % 6.0 L Monocytes % 3.9 Eosinophils % 0.4 Basophils % 0.3 Absolute Neutrophils 14.3 H Absolute Lymphocytes 1.0 Absolute Monocytes 0.6 Absolute Eosinophils 0.1 Absolute Basophils 0.0 PT 13.0 INR 0.98 APTT 23.9 Carbonic Acid HCO3/H2CO3 Ratio ABG pH ABG pCO2 ABG pO2 ABG HCO3 ABG Total CO2 ABG O2 Saturation ABG Base Excess VBG pH VBG pCO2 VBG HCO3 VBG Base Excess FiO2 Sodium 137.3 Potassium 4.5 Chloride 104 Carbon Dioxide 23 Anion Gap 10 BUN 24 H Creatinine 1.32 H Est GFR ( Amer) > 60 Est GFR (Non-Af Amer) 58 L Glucose 378 H POC Glucose Hemoglobin A1c % Lactic Acid Calcium 9.0 Phosphorus Magnesium Total Bilirubin 0.5 Direct Bilirubin 0.3 Neonat Total Bilirubin Not Reportable Neonat Direct Bilirubin Not Reportable Neonat Indirect Bili Not Reportable AST 20 ALT 21 Alkaline Phosphatase 126 Creatine Kinase CK-MB (CK-2) Troponin I Total Protein 6.9 Albumin 4.1 Triglycerides Cholesterol LDL Cholesterol Direct VLDL Cholesterol HDL Cholesterol Blood Type Antibody Screen 01/16/19 01/16/19 01/16/19 05:50 05:50 05:50 WBC RBC Hgb Hct MCV MCH MCHC RDW Plt Count Seg Neutrophils % Lymphocytes % Monocytes % Eosinophils % Basophils % Absolute Neutrophils Absolute Lymphocytes Absolute Monocytes Absolute Eosinophils Absolute Basophils PT INR APTT Carbonic Acid HCO3/H2CO3 Ratio ABG pH ABG pCO2 ABG pO2 ABG HCO3 ABG Total CO2 ABG O2 Saturation ABG Base Excess VBG pH 7.30 VBG pCO2 45.5 VBG HCO3 21.7 VBG Base Excess -4.8 FiO2 Sodium Potassium Chloride Carbon Dioxide Anion Gap BUN Creatinine Est GFR ( Amer) Est GFR (Non-Af Amer) Glucose POC Glucose Hemoglobin A1c % Lactic Acid 1.7 Calcium Phosphorus Magnesium Total Bilirubin Direct Bilirubin Neonat Total Bilirubin Neonat Direct Bilirubin Neonat Indirect Bili AST ALT Alkaline Phosphatase Creatine Kinase CK-MB (CK-2) Troponin I Total Protein Albumin Triglycerides Cholesterol LDL Cholesterol Direct VLDL Cholesterol HDL Cholesterol Blood Type O POSITIVE Antibody Screen NEGATIVE 01/16/19 01/16/19 01/16/19 11:32 11:32 11:32 WBC RBC Hgb Hct MCV MCH MCHC RDW Plt Count Seg Neutrophils % Lymphocytes % Monocytes % Eosinophils % Basophils % Absolute Neutrophils Absolute Lymphocytes Absolute Monocytes Absolute Eosinophils Absolute Basophils PT INR APTT Carbonic Acid HCO3/H2CO3 Ratio ABG pH ABG pCO2 ABG pO2 ABG HCO3 ABG Total CO2 ABG O2 Saturation ABG Base Excess VBG pH VBG pCO2 VBG HCO3 VBG Base Excess FiO2 Sodium Potassium Chloride Carbon Dioxide Anion Gap BUN Creatinine Est GFR ( Amer) Est GFR (Non-Af Amer) Glucose POC Glucose Hemoglobin A1c % Lactic Acid Calcium Phosphorus Magnesium Total Bilirubin Direct Bilirubin Neonat Total Bilirubin Neonat Direct Bilirubin Neonat Indirect Bili AST ALT Alkaline Phosphatase Creatine Kinase 132 CK-MB (CK-2) 4.40 Troponin I 0.335 Total Protein Albumin Triglycerides Cholesterol LDL Cholesterol Direct VLDL Cholesterol HDL Cholesterol Blood Type Antibody Screen 01/16/19 01/16/19 01/16/19 18:47 18:47 19:01 WBC RBC Hgb Hct MCV MCH MCHC RDW Plt Count Seg Neutrophils % Lymphocytes % Monocytes % Eosinophils % Basophils % Absolute Neutrophils Absolute Lymphocytes Absolute Monocytes Absolute Eosinophils Absolute Basophils PT INR APTT Carbonic Acid HCO3/H2CO3 Ratio ABG pH ABG pCO2 ABG pO2 ABG HCO3 ABG Total CO2 ABG O2 Saturation ABG Base Excess VBG pH VBG pCO2 VBG HCO3 VBG Base Excess FiO2 Sodium Potassium Chloride Carbon Dioxide Anion Gap BUN Creatinine Est GFR ( Amer) Est GFR (Non-Af Amer) Glucose POC Glucose 318 H Hemoglobin A1c % Lactic Acid Calcium Phosphorus Magnesium Total Bilirubin Direct Bilirubin Neonat Total Bilirubin Neonat Direct Bilirubin Neonat Indirect Bili AST ALT Alkaline Phosphatase Creatine Kinase 101 CK-MB (CK-2) 4.02 Troponin I 0.691 Total Protein Albumin Triglycerides Cholesterol LDL Cholesterol Direct VLDL Cholesterol HDL Cholesterol Blood Type Antibody Screen 01/17/19 01/17/19 01/17/19 03:33 03:33 03:33 WBC 10.1 RBC 4.28 L Hgb 12.4 L D Hct 35.6 L MCV 83 MCH 28.9 MCHC 34.8 RDW 13.9 Plt Count 247 Seg Neutrophils % 78.2 H Lymphocytes % 13.0 Monocytes % 7.1 Eosinophils % 0.7 Basophils % 1.0 Absolute Neutrophils 7.9 Absolute Lymphocytes 1.3 Absolute Monocytes 0.7 Absolute Eosinophils 0.1 Absolute Basophils 0.1 PT INR APTT Carbonic Acid HCO3/H2CO3 Ratio ABG pH ABG pCO2 ABG pO2 ABG HCO3 ABG Total CO2 ABG O2 Saturation ABG Base Excess VBG pH VBG pCO2 VBG HCO3 VBG Base Excess FiO2 Sodium 135.5 L Potassium 4.0 Chloride 105 Carbon Dioxide 24 Anion Gap 7 BUN 19 Creatinine 0.88 Est GFR ( Amer) > 60 Est GFR (Non-Af Amer) > 60 Glucose 223 H POC Glucose Hemoglobin A1c % 10.2 H Lactic Acid Calcium 8.1 L Phosphorus 2.6 Magnesium 1.8 Total Bilirubin 0.9 Direct Bilirubin 0.3 Neonat Total Bilirubin Not Reportable Neonat Direct Bilirubin Not Reportable Neonat Indirect Bili Not Reportable AST 18 ALT 21 Alkaline Phosphatase 84 Creatine Kinase CK-MB (CK-2) Troponin I Total Protein 5.6 L Albumin 3.2 L Triglycerides 120 Cholesterol 165.48 LDL Cholesterol Direct 114 H VLDL Cholesterol 24.0 HDL Cholesterol 28 L Blood Type Antibody Screen 01/17/19 01/17/19 01/17/19 03:33 07:52 10:15 WBC RBC Hgb Hct MCV MCH MCHC RDW Plt Count Seg Neutrophils % Lymphocytes % Monocytes % Eosinophils % Basophils % Absolute Neutrophils Absolute Lymphocytes Absolute Monocytes Absolute Eosinophils Absolute Basophils PT INR APTT Carbonic Acid 1.11 HCO3/H2CO3 Ratio 20:1 ABG pH 7.41 ABG pCO2 37.0 ABG pO2 82.5 ABG HCO3 22.9 ABG Total CO2 24.0 ABG O2 Saturation 96.3 ABG Base Excess -1.3 VBG pH VBG pCO2 VBG HCO3 VBG Base Excess FiO2 6L Sodium Potassium Chloride Carbon Dioxide Anion Gap BUN Creatinine Est GFR ( Amer) Est GFR (Non-Af Amer) Glucose POC Glucose 240 H Hemoglobin A1c % Lactic Acid Calcium Phosphorus Magnesium Total Bilirubin Direct Bilirubin Neonat Total Bilirubin Neonat Direct Bilirubin Neonat Indirect Bili AST ALT Alkaline Phosphatase Creatine Kinase CK-MB (CK-2) Troponin I 0.525 Total Protein Albumin Triglycerides Cholesterol LDL Cholesterol Direct VLDL Cholesterol HDL Cholesterol Blood Type Antibody Screen 01/17/19 01/18/1919 21:02 11:19 15:57 WBC RBC Hgb Hct MCV MCH MCHC RDW Plt Count Seg Neutrophils % Lymphocytes % Monocytes % Eosinophils % Basophils % Absolute Neutrophils Absolute Lymphocytes Absolute Monocytes Absolute Eosinophils Absolute Basophils PT INR APTT Carbonic Acid HCO3/H2CO3 Ratio ABG pH ABG pCO2 ABG pO2 ABG HCO3 ABG Total CO2 ABG O2 Saturation ABG Base Excess VBG pH VBG pCO2 VBG HCO3 VBG Base Excess FiO2 Sodium Potassium Chloride Carbon Dioxide Anion Gap BUN Creatinine Est GFR ( Amer) Est GFR (Non-Af Amer) Glucose POC Glucose 306 H 382 H 307 H Hemoglobin A1c % Lactic Acid Calcium Phosphorus Magnesium Total Bilirubin Direct Bilirubin Neonat Total Bilirubin Neonat Direct Bilirubin Neonat Indirect Bili AST ALT Alkaline Phosphatase Creatine Kinase CK-MB (CK-2) Troponin I Total Protein Albumin Triglycerides Cholesterol LDL Cholesterol Direct VLDL Cholesterol HDL Cholesterol Blood Type Antibody Screen 01/18/19 01/19/19 01/19/19 21:18 08:09 11:54 WBC RBC Hgb Hct MCV MCH MCHC RDW Plt Count Seg Neutrophils % Lymphocytes % Monocytes % Eosinophils % Basophils % Absolute Neutrophils Absolute Lymphocytes Absolute Monocytes Absolute Eosinophils Absolute Basophils PT INR APTT Carbonic Acid HCO3/H2CO3 Ratio ABG pH ABG pCO2 ABG pO2 ABG HCO3 ABG Total CO2 ABG O2 Saturation ABG Base Excess VBG pH VBG pCO2 VBG HCO3 VBG Base Excess FiO2 Sodium Potassium Chloride Carbon Dioxide Anion Gap BUN Creatinine Est GFR ( Amer) Est GFR (Non-Af Amer) Glucose POC Glucose 287 H 295 H 439 H* Hemoglobin A1c % Lactic Acid Calcium Phosphorus Magnesium Total Bilirubin Direct Bilirubin Neonat Total Bilirubin Neonat Direct Bilirubin Neonat Indirect Bili AST ALT Alkaline Phosphatase Creatine Kinase CK-MB (CK-2) Troponin I Total Protein Albumin Triglycerides Cholesterol LDL Cholesterol Direct VLDL Cholesterol HDL Cholesterol Blood Type Antibody Screen 01/19/19 01/19/19 01/20/19 17:07 21:43 07:37 WBC RBC Hgb Hct MCV MCH MCHC RDW Plt Count Seg Neutrophils % Lymphocytes % Monocytes % Eosinophils % Basophils % Absolute Neutrophils Absolute Lymphocytes Absolute Monocytes Absolute Eosinophils Absolute Basophils PT INR APTT Carbonic Acid HCO3/H2CO3 Ratio ABG pH ABG pCO2 ABG pO2 ABG HCO3 ABG Total CO2 ABG O2 Saturation ABG Base Excess VBG pH VBG pCO2 VBG HCO3 VBG Base Excess FiO2 Sodium Potassium Chloride Carbon Dioxide Anion Gap BUN Creatinine Est GFR ( Amer) Est GFR (Non-Af Amer) Glucose POC Glucose 309 H 261 H 296 H Hemoglobin A1c % Lactic Acid Calcium Phosphorus Magnesium Total Bilirubin Direct Bilirubin Neonat Total Bilirubin Neonat Direct Bilirubin Neonat Indirect Bili AST ALT Alkaline Phosphatase Creatine Kinase CK-MB (CK-2) Troponin I Total Protein Albumin Triglycerides Cholesterol LDL Cholesterol Direct VLDL Cholesterol HDL Cholesterol Blood Type Antibody Screen 01/20/19 01/20/19 01/20/19 11:38 11:54 15:57 WBC RBC Hgb Hct MCV MCH MCHC RDW Plt Count Seg Neutrophils % Lymphocytes % Monocytes % Eosinophils % Basophils % Absolute Neutrophils Absolute Lymphocytes Absolute Monocytes Absolute Eosinophils Absolute Basophils PT INR APTT Carbonic Acid HCO3/H2CO3 Ratio ABG pH ABG pCO2 ABG pO2 ABG HCO3 ABG Total CO2 ABG O2 Saturation ABG Base Excess VBG pH VBG pCO2 VBG HCO3 VBG Base Excess FiO2 Sodium Potassium Chloride Carbon Dioxide Anion Gap BUN Creatinine Est GFR ( Amer) Est GFR (Non-Af Amer) Glucose POC Glucose 364 H 137 H Hemoglobin A1c % Lactic Acid Calcium Phosphorus Magnesium Total Bilirubin Direct Bilirubin Neonat Total Bilirubin Neonat Direct Bilirubin Neonat Indirect Bili AST ALT Alkaline Phosphatase Creatine Kinase CK-MB (CK-2) Troponin I 0.078 Total Protein Albumin Triglycerides Cholesterol LDL Cholesterol Direct VLDL Cholesterol HDL Cholesterol Blood Type Antibody Screen 01/20/19 21:16 WBC RBC Hgb Hct MCV MCH MCHC RDW Plt Count Seg Neutrophils % Lymphocytes % Monocytes % Eosinophils % Basophils % Absolute Neutrophils Absolute Lymphocytes Absolute Monocytes Absolute Eosinophils Absolute Basophils PT INR APTT Carbonic Acid HCO3/H2CO3 Ratio ABG pH ABG pCO2 ABG pO2 ABG HCO3 ABG Total CO2 ABG O2 Saturation ABG Base Excess VBG pH VBG pCO2 VBG HCO3 VBG Base Excess FiO2 Sodium Potassium Chloride Carbon Dioxide Anion Gap BUN Creatinine Est GFR ( Amer) Est GFR (Non-Af Amer) Glucose POC Glucose 131 H Hemoglobin A1c % Lactic Acid Calcium Phosphorus Magnesium Total Bilirubin Direct Bilirubin Neonat Total Bilirubin Neonat Direct Bilirubin Neonat Indirect Bili AST ALT Alkaline Phosphatase Creatine Kinase CK-MB (CK-2) Troponin I Total Protein Albumin Triglycerides Cholesterol LDL Cholesterol Direct VLDL Cholesterol HDL Cholesterol Blood Type Antibody Screen Chest X-Ray 01/16/19 05:42 IMPRESSION: Moderate mixed interstitial and airpace opacities. Differential diagnosis includes pulmonary edema, multifocal pneumonia, and chronic interstitial lung disease. Chest/Abdomen CTA 01/16/19 09:21 IMPRESSION: Alveolar and interstitial pulmonary edema with trace pleural eff usions No CT angio evidence of acute pulmonary emboli. Mild mediastinal adenopathy Neck CTA 01/16/19 09:21 IMPRESSION: NORMAL CTA OF THE EXTRA-CRANIAL CAROTID AND VERTEBRAL ARTERIES. No CTA evidence of jugular vein thrombosis or prevertebral space abscess Chest X-Ray 01/17/19 00:00 IMPRESSION: IMPROVEMENT IN THE FINDINGS OF CONGESTIVE HEART FAILURE. IMPRESSION/RECOMMENDATION: 1. Patient with chest tightness intermittent with elevated troponin need to make an assumption that this is a non-ST elevation [place]. Note the patient present, since admission, has no anginal symptoms. Continue rates, note the IV nitroglycerin has been discontinued. Continue aspirin. Start the patient on metoprolol and increase as tolerated. Continue statin. Also continue the patient's full chronic anticoagulation has been discontinued. We will schedule the patient for a 2-day IV Lexiscan Cardiolite starting tomorrow. 2. Bilateral pneumonia: Continue antibiotics. 3. COPD: With possible acute exacerbation. This is resolved. Continue inhalation therapy. 4. Clinically no evidence of pulmonary edema or CHF. In fact the patient seems dehydrated. We will increase the patient's IV fluids to 70 mL/h. 5. Diabetes mellitus [id number]. Continue antidiabetic regimen and serial Accu-Cheks determinations. 6. Hypertension: Blood pressure seems to be well controlled. 7. Hyperlipidemia: Continue statins also would recommend podiatry consult for dietary education for the patient. 8. Possible right upper molar abscess. Continue antibiotics. This is immensely improved. 9. Tobacco abuse disorder: Ill effects of tobacco discussed with patient recommend full resolve and action to stop smoking. Smoking cessation counseling done spent 3 minutes on this. 10. Morbid obesity. Continue current medication as mentioned above. Medications reviewed. Management plan and medications discussed with hannah Alegre. Medical decision making is of high complexity. 40 minutes spent on this patient with more than 50% of time spent in direct patient care. Will follow. .
[2019-01-21] MEDS: PANTOPRAZOLE SODIUM 40 MG TABLET.DR PO SCH (05:10)
[2019-01-21] MEDS: HUM INSULIN NPH/REG INSULIN HM 100 UNIT/1 ML 3 ML SUBCUT SCH ×2 (07:55→17:00)
[2019-01-21] MEDS: INSULIN LISPRO 100 UNIT/ML 3 ML VIAL SUBCUT SCH ×4 (07:55→22:28)
--- NOTE | 2019-01-21 08:22 | PDOC PROGRESS REPORT ---
Subjective Progress Note for:: 01/21/19 Subjective:: Patient started on schedule for 2 days Lexiscan stress test evaluation today. No chest pain or difficulty with breathing. No nausea, vomiting, or abdominal pain. No fever or chills. Reason For Visit: MULTIOBAR PNEUMONIA WITH ACUTE RESPIRATORY Physical Exam Vital Signs: Temp Pulse Resp BP Pulse Ox 97.9 F 96 16 135/70 H 94 01/21/19 03:59 01/21/19 03:59 01/21/19 03:59 01/21/19 03:59 01/21/19 03:59 Intake & Output 01/20/19 01/21/19 01/22/19 06:59 06:59 06:59 Intake Total 1760 2341 Balance 1760 2341 Weight 139 kg 135.8 kg Physical Exam: General appearance: PRESENT: morbidly obese Head exam: PRESENT: atraumatic, normocephalic Eye exam: PRESENT: conjunctiva pink. ABSENT: pallor, scleral icterus Ear exam: PRESENT: normal external ear exam Mouth exam: PRESENT: moist Respiratory exam: PRESENT: clear to auscultation claudette Cardiovascular exam: PRESENT: RRR. ABSENT: diastolic murmur, rubs, systolic murmur GI/Abdominal exam: PRESENT: normal bowel sounds, soft. ABSENT: distended, guarding, mass, organomegaly, rebound, tenderness Extremities exam: ABSENT: pedal edema Musculoskeletal exam: PRESENT: normal inspection Neurological exam: PRESENT: alert, awake, oriented to person, oriented to place, oriented to time, oriented to situation, CN II-XII grossly intact. ABSENT: motor sensory deficit Psychiatric exam: PRESENT: appropriate affect, normal mood. ABSENT: homicidal ideation, suicidal ideation Skin exam: PRESENT: dry, warm Results Laboratory Results: 01/17/19 03:33 01/17/19 03:33 01/16/19 01/16/19 01/16/19 11:32 11:32 11:32 Creatine Kinase 132 CK-MB (CK-2) 4.40 Troponin I 0.335 01/16/19 01/16/19 01/17/19 18:47 18:47 03:33 Creatine Kinase 101 CK-MB (CK-2) 4.02 Troponin I 0.691 0.525 01/20/19 11:54 Creatine Kinase CK-MB (CK-2) Troponin I 0.078 Impressions: Chest/Abdomen CTA 01/16/19 09:21 IMPRESSION: Alveolar and interstitial pulmonary edema with trace pleural effusions No CT angio evidence of acute pulmonary emboli. Mild mediastinal adenopathy Neck CTA 01/16/19 09:21 IMPRESSION: NORMAL CTA OF THE EXTRA-CRANIAL CAROTID AND VERTEBRAL ARTERIES. No CTA evidence of jugular vein thrombosis or prevertebral space abscess Chest X-Ray 01/17/19 00:00 IMPRESSION: IMPROVEMENT IN THE FINDINGS OF CONGESTIVE HEART FAILURE. Assessment & Plan - Diagnosis (1) Multifocal pneumonia Is this a current diagnosis for this admission?: Yes (2) Acute renal failure Qualifiers: Acute renal failure type: unspecified Qualified Code(s): N17.9 - Acute kidney failure, unspecified Is this a current diagnosis for this admission?: Yes (3) Non-ST elevation MD (NSTEMI) Is this a current diagnosis for this admission?: Yes (4) Pulmonary edema Qualifiers: Chronicity: acute Qualified Code(s): J81.0 - Acute pulmonary edema Is this a current diagnosis for this admission?: Yes (5) Hyperglycemia due to type 2 diabetes mellitus Qualifiers: Diabetes mellitus terminal carman insulin use: with terminal carman use Qualified Code(s): E11.65 - Type 2 diabetes mellitus with hyperglycemia; Z79.4 - superintendent container terminal (current) use of insulin Is this a current diagnosis for this admission?: Yes (6) HTN (hypertension) Qualifiers: Hypertension type: essential hypertension Qualified Code(s): I10 - Essential (primary) hypertension Is this a current diagnosis for this admission?: Yes (7) Patient noncompliance, general Is this a current diagnosis for this admission?: Yes (8) Morbid obesity with BMI of 40.0-44.9, adult Is this a current diagnosis for this admission?: Yes - Time Time Spent with patient: 25-34 minutes Medications reviewed and adjusted accordingly: Yes Anticipated discharge: Home Within: Other - Inpatient Certification Based on my medical assessment, after consideration of the patient's comorbidities, presenting symptoms, or acuity I expect that the services needed warrant INPATIENT care.: Yes I certify that my determination is in accordance with my understanding of Medicare's requirements for reasonable and necessary INPATIENT services [42 CFR 412.3e].: Yes Medical Necessity: Significant Comorbidiites Make Outpatient Treatment Too Risky, Need Close Monitoring Due to Risk of Patient Decompensation, Need For Continuous Telemetry Monitoring, Risk of Complication if Not Cared For in Hospital, Risk of Diagnosis Which Will Require Inpatient Eval/Care/Monitoring Post Hospital Care: D/C Social Insurance Administrator Documentation - Plan Summary Plan Summary: Continue current medication management. follow up on stress test findings. Accuchek findings improving regarding his glycemic control.
[2019-01-21] MEDS: LORAZEPAM INJ 2 MG/1 ML VIAL IV PRN ×2 (10:20→21:40)
[2019-01-21] MEDS: METOPROLOL SUCCINATE 25 MG TAB.SR.24H PO SCH (10:22)
[2019-01-21] MEDS: GUAIFENESIN 600 MG TABLET.SA PO SCH ×2 (10:23→21:34)
[2019-01-21] MEDS: ENOXAPARIN SODIUM INJ 150 MG/1 ML DISP.SYRIN SUBCUT SCH ×2 (10:25→21:34)
[2019-01-21] MEDS: LEVOFLOXACIN 500 MG/D5W RTU 500 MG/100 ML RTUPB IV SCH (10:27)
[2019-01-21] MEDS: ISOSORBIDE MONONITRATE 30 MG TAB.ER.24H PO SCH (10:27)
[2019-01-21] MEDS: CEFEPIME HCL 2 GM in DEXTROSE 5%-WATER 50 ML IV SCH (11:44)
[2019-01-21] MEDS: ACETAMINOPHEN 325 MG TABLET PO PRN (21:39)
--- NOTE | 2019-01-21 21:46 | Progress Note ---
Provider Note Provider Note: CARDIOLOGY PROGRESS NOTE by Dr. Tawnya Shipman on 01/21/2019. SUBJECTIVE: The patient is without any chest pain or discomfort. There is no shortness of breath. There is no PND orthopnea there is no leg edema. The patient's O2 sats are 94% on room air. There is no TIA CVA symptoms. There is no arrhythmia seen on the monitor. The patient denies any cough or sputum production. The patient underwent resting Cardiolite images today. He will have the stress portion of the stress test tomorrow. PHYSICAL EXAMINATION: The patient is morbidly obese. Well-groomed in no acute distress. Selected Entries 01/21/19 12:03 Temperature 97.8 F Temperature Oral Source Pulse Rate 95 Respiratory 18 Rate Blood Pressure 125/74 Blood Pressure 91 Mean BP Location Left Arm BP Position Sitting O2 Sat by Pulse 97 Oximetry Oxygen Delivery Room Air Method EYES: Pupils are equal round regular reactive to light accommodation. Extraocular movements are normal. There is no conjunctival pallor. There is no scleral icterus. There is no conjunctival pallor. EARS: Tympanic membranes are intact. External auditory canals are clear. NOSE: NASAL MUCOUS MEMBRANES ARE MOIST. THERE IS NO INFLAMMATION OF THE NASAL MUCOUS MEMBRANE. Mouth: Mucous membranes of the mouth dry. There is no ulcers in the tongue or mouth. There is no bleeding from the gums. THROAT: There is no redness of the oropharynx. There is no exudates. SKIN: There is no skin rashes or skin lesions. There is no particular ecchymosis. LUNGS: There is diminished air entry prolonged expiration. There is dry crackles in bases left more than right consistent with pneumonia. There is no rales of CHF. There is no rhonchi or wheezing. There is no chest wall tenderness on palpation. HEART: S1-S2 is heard. There is no S3 gallop. There is no S4 gallop. Systolic murmur left sternal border and the apex there is no rub. ABDOMEN: Is obese. Nontender. There is no hepatospleno megaly. Bowel sounds are well heard. There is no tender areas of masses. EXTREMITIES: Femorals are deep. Femorals are diminished. There is no femoral bruits. Leg pulses are diminished. There is no pedal edema. There is no DVT or cellulitis. There is no calf tenderness. 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 PSYCHIATRIC: The patient judgment and insight are intact. His affect is normal. The patient is EKG shows sinus rhythm no acute changes. Probable left atrial abnormality. 01/21/19 12:19 POC Glucose 221 H IMPRESSION/RECOMMENDATION: 1. Patient with chest tightness intermittent with elevated troponin need to make an assumption that this is a non-ST elevation CA. Note the patient has no anginal symptoms. . The patient will have a stress portion of his Cardiolite stress test tomorrow 2. Bilateral pneumonia: Continue antibiotics. This seems to resolved. But will check a chest x-ray in the morning. 3. COPD:: Back to baseline continue anti-COPD medications. 4. Clinically no evidence of pulmonary edema or CHF. The patient's IV fluids have been discussed continued, since the patient has been rehydrated.. 5. Diabetes mellitus [id number]. Continue antidiabetic regimen and serial Accu-Cheks determinations. 6. Hypertension: Blood pressure seems to be well controlled. 7. Hyperlipidemia: Continue statins also would recommend dietary consult for dietary education for the patient. 8. Possible right upper molar abscess. This is resolved 9. Tobacco abuse disorder: Ill effects of tobacco discussed with patient recommend full resolve and action to stop smoking. Smoking cessation counseling done spent 3 minutes on this. 10. Morbid obesity.. MEDICATIONS reviewed. Management plan discussed with attending physician on the case medical decision making is of moderate complexity. 40 minutes spent on this patient more than 50% of time spent in direct patient care.
[2019-01-22] MEDS: CEFEPIME HCL 2 GM in DEXTROSE 5%-WATER 50 ML IV SCH (00:10)
[2019-01-22] MEDS: PANTOPRAZOLE SODIUM 40 MG TABLET.DR PO SCH (05:20)
[2019-01-22 05:27] LABS: ABSOLUTE BASOPHILS # (AUTO) 0.1 10^3/uL (0.0-0.2); ABSOLUTE EOSINOPHILS # (AUTO) 0.2 10^3/uL (0.0-0.6); ABSOLUTE LYMPHOCYTES (AUTO) 1.4 10^3/uL (0.5-4.7); ABSOLUTE MONOCYTES (AUTO) 0.6 10^3/uL (0.1-1.4); ABSOLUTE NEUT (AUTO) 5.1 10^3/uL (1.7-8.2); BASOPHILS % (AUTO) 0.8 % (0-2); EOSINOPHILS % (AUTO) 3.1 % (0-6); HEMATOCRIT 37.2 % (37.9-51.0); HEMOGLOBIN 13.1 g/dL (13.5-17.0); LYMPHOCYTES % (AUTO) 19.2 % (13-45); MEAN CORPUSCULAR HGB CONC 35.2 g/dL (32.0-36.0); MEAN CORPUSCULAR VOLUME 82 fl (80-97); MONOCYTES % (AUTO) 7.7 % (3-13); PLATELET COUNT 266 10^3/uL (150-450); RED BLOOD COUNT 4.52 10^6/uL (4.35-5.55); RED CELL DISTRIBUTION WIDTH 13.6 % (11.5-14.0); SEGMENTED NEUTROPHILS % (AUTO) 69.2 % (42-78); TOTAL CELLS COUNTED % (AUTO) 100 %; WHITE BLOOD COUNT 7.3 10^3/uL (4.0-10.5)
[2019-01-22 05:38] LABS: ANION GAP 5 (5-19); BLOOD UREA NITROGEN 16 mg/dL (7-20); CALCIUM 9.4 mg/dL (8.4-10.2); CARBON DIOXIDE 25 mmol/L (22-30); CHLORIDE 106 mmol/L (98-107); GLUCOSE 220 mg/dL (75-110); POTASSIUM 4.5 mmol/L (3.6-5.0)
--- NOTE | 2019-01-22 08:19 | PDOC PROGRESS REPORT ---
Subjective Progress Note for:: 01/22/19 Subjective:: Patient started on schedule for 2nd day Lexiscan stress test evaluation today. No chest pain or difficulty with breathing. No nausea, vomiting, or abdominal pain. No fever or chills. His glycemic control has improved. Reason For Visit: MULTIOBAR PNEUMONIA WITH ACUTE RESPIRATORY Physical Exam Vital Signs: Temp Pulse Resp BP Pulse Ox 98.0 F 88 16 111/69 96 01/22/19 03:41 01/22/19 03:41 01/22/19 03:41 01/22/19 03:41 01/22/19 03:41 Intake & Output 01/21/19 01/22/19 01/23/19 06:59 06:59 06:59 Intake Total 2341 1337 Balance 2341 1337 Weight 135.8 kg 134.5 kg Physical Exam: General appearance: PRESENT: morbidly obese Head exam: PRESENT: atraumatic, normocephalic Eye exam: PRESENT: conjunctiva pink. ABSENT: pallor, scleral icterus Ear exam: PRESENT: normal external ear exam Mouth exam: PRESENT: moist Respiratory exam: PRESENT: clear to auscultation claudette Cardiovascular exam: PRESENT: RRR. ABSENT: diastolic murmur, rubs, systolic murmur GI/Abdominal exam: PRESENT: normal bowel sounds, soft. ABSENT: distended, guarding, mass, organomegaly, rebound, tenderness Extremities exam: ABSENT: pedal edema Musculoskeletal exam: PRESENT: normal inspection Neurological exam: PRESENT: alert, awake, oriented to person, oriented to place, oriented to time, oriented to situation, CN II-XII grossly intact. ABSENT: motor sensory deficit Psychiatric exam: PRESENT: appropriate affect, normal mood. ABSENT: homicidal ideation, suicidal ideation Skin exam: PRESENT: dry, warm Results Laboratory Results: 01/22/19 04:56 01/22/19 04:56 01/22/19 01/22/19 04:56 04:56 WBC 7.3 RBC 4.52 Hgb 13.1 L Hct 37.2 L MCV 82 MCH 29.0 MCHC 35.2 RDW 13.6 Plt Count 266 Seg Neutrophils % 69.2 Lymphocytes % 19.2 Monocytes % 7.7 Eosinophils % 3.1 Basophils % 0.8 Absolute Neutrophils 5.1 Absolute Lymphocytes 1.4 Absolute Monocytes 0.6 Absolute Eosinophils 0.2 Absolute Basophils 0.1 Sodium 136.4 L Potassium 4.5 Chloride 106 Carbon Dioxide 25 Anion Gap 5 BUN 16 Creatinine 0.91 Est GFR ( Amer) > 60 Est GFR (Non-Af Amer) > 60 Glucose 220 H Calcium 9.4 01/16/19 08:00 Blood Blood Culture - Final NO GROWTH IN 5 DAYS 01/16/19 07:45 Blood Blood Culture - Final NO GROWTH IN 5 DAYS 01/16/19 01/16/19 01/16/19 11:32 11:32 11:32 Creatine Kinase 132 CK-MB (CK-2) 4.40 Troponin I 0.335 01/16/19 01/16/19 01/17/19 18:47 18:47 03:33 Creatine Kinase 101 CK-MB (CK-2) 4.02 Troponin I 0.691 0.525 01/20/19 11:54 Creatine Kinase CK-MB (CK-2) Troponin I 0.078 Impressions: Chest/Abdomen CTA 01/16/19 09:21 IMPRESSION: Alveolar and interstitial pulmonary edema with trace pleural effusions No CT angio evidence of acute pulmonary emboli. Mild mediastinal adenopathy Neck CTA 01/16/19 09:21 IMPRESSION: NORMAL CTA OF THE EXTRA-CRANIAL CAROTID AND VERTEBRAL ARTERIES. No CTA evidence of jugular vein thrombosis or prevertebral space abscess Assessment & Plan - Diagnosis (1) Multifocal pneumonia Is this a current diagnosis for this admission?: Yes (2) Acute renal failure Qualifiers: Acute renal failure type: unspecified Qualified Code(s): N17.9 - Acute kidney failure, unspecified Is this a current diagnosis for this admission?: Yes (3) Non-ST elevation AK (NSTEMI) Is this a current diagnosis for this admission?: Yes (4) Pulmonary edema Qualifiers: Chronicity: acute Qualified Code(s): J81.0 - Acute pulmonary edema Is this a current diagnosis for this admission?: Yes (5) Hyperglycemia due to type 2 diabetes mellitus Qualifiers: Diabetes mellitus fpc insulin use: with adjunct faculty for medical terminology use Qualified Code(s): E11.65 - Type 2 diabetes mellitus with hyperglycemia; Z79.4 - intermediate project manager (current) use of insulin Is this a current diagnosis for this admission?: Yes (6) HTN (hypertension) Qualifiers: Hypertension type: essential hypertension Qualified Code(s): I10 - Essential (primary) hypertension Is this a current diagnosis for this admission?: Yes (7) Patient noncompliance, general Is this a current diagnosis for this admission?: Yes (8) Morbid obesity with BMI of 40.0-44.9, adult Is this a current diagnosis for this admission?: Yes - Time Time Spent with patient: 25-34 minutes Medications reviewed and adjusted accordingly: Yes Anticipated discharge: Home Within: Other - Inpatient Certification Based on my medical assessment, after consideration of the patient's comorbidities, presenting symptoms, or acuity I expect that the services needed warrant INPATIENT care.: Yes I certify that my determination is in accordance with my understanding of Medicare's requirements for reasonable and necessary INPATIENT services [42 CFR 412.3e].: Yes Medical Necessity: Significant Comorbidiites Make Outpatient Treatment Too R isky, Need Close Monitoring Due to Risk of Patient Decompensation, Need For Continuous Telemetry Monitoring, Need for IV Antibiotics, Risk of Complication if Not Cared For in Hospital, Risk of Diagnosis Which Will Require Inpatient Eval/Care/Monitoring Post 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 Start on Levofloxacin 500 mg p.o daily and Cefdinir 300 mg p.o bid. Possible discharge tomorrow was discussed with patient and he is in agreement.
--- NOTE | 2019-01-22 08:41 | RADIOLOGY REPORT (SQ) ---
EXAM DESCRIPTION: CHEST SINGLE VIEW COMPLETED DATE/TIME: 01/22/2019 8:19 am REASON FOR STUDY: Pneumonia. COMPARISON: 01/17/2019. EXAM PARAMETERS: NUMBER OF VIEWS: One view. TECHNIQUE: Single frontal radiographic view of the chest acquired. RADIATION DOSE: NA LIMITATIONS: None. FINDINGS: LUNGS AND PLEURA: Improved aeration. No opacities, masses or pneumothorax. No pleural eff usion. MEDIASTINUM AND HILAR STRUCTURES: No masses. Contour normal. HEART AND VASCULAR STRUCTURES: Heart normal in size. Normal vasculature. BONES: No acute findings. HARDWARE: None in the chest. OTHER: No other significant finding. IMPRESSION: IMPROVED APPEARANCE. NO ACUTE RADIOGRAPHIC FINDING IN THE CHEST. TECHNICAL DOCUMENTATION: JOB ID: [id number] [employer]- All Rights Reserved Reading location - IP/workstation name: [email or web address]
[2019-01-22] MEDS ORDERED: LEVOFLOXACIN 500 MG TABLET PO SCH (10:00)
[2019-01-22] MEDS: INSULIN LISPRO 100 UNIT/ML 3 ML VIAL SUBCUT SCH (10:07)
[2019-01-22] MEDS: HUM INSULIN NPH/REG INSULIN HM 100 UNIT/1 ML 3 ML SUBCUT SCH (10:07)
[2019-01-22] MEDS: METOPROLOL SUCCINATE 25 MG TAB.SR.24H PO SCH (10:14)
[2019-01-22] MEDS: GUAIFENESIN 600 MG TABLET.SA PO SCH (10:14)
[2019-01-22] MEDS: ISOSORBIDE MONONITRATE 30 MG TAB.ER.24H PO SCH (10:15)
[2019-01-22] MEDS: ENOXAPARIN SODIUM INJ 150 MG/1 ML DISP.SYRIN SUBCUT SCH (10:15)
[2019-01-22 13:18] VITALS: BP 138/74
[2019-01-22] MEDS ORDERED: REGADENOSON INJ 0.4 MG/5 ML DISP.SYRIN IV ONE (13:25)
--- NOTE | 2019-01-22 21:55 | Progress Note ---
Provider Note Provider Note: CARDIOLOGY NOTE by Dr. Tawnya Shipman. The patient underwent the stress portion of the IV Lexiscan Cardiolite today. This showed that there is minimal reversible ischemia/teri-infarct ischemia in the area of myocardial infarction/scar of the inferior wall, the inferolateral wall, and the mid and distal lateral ayala. But the patient did not wait for the for me to discuss the results with him. He had signed out AMA. We will try to contact the patient can have him follow-up as an outpatient. No charges for today. Since formal formally the patient has not been seen to assess progress.
[2019-01-22] MEDS ORDERED: GUAIFENESIN 600 MG TABLET.SA PO SCH (22:00)
--- NOTE | 2019-01-22 23:29 | DRAGON STRESS TEST REPORT ---
2 Day Intravenous Lexiscan Cardiolite stress test using single photon emmision computerized tomography. Date of Resting procedure: 01/21/2019. Date of Stress procedure: 01/22/2019. Ordering Provider: Dr. Lakshmi. Hough. Attending Physician: Dr. Alegre Indication: Chest tightness and non-ST elevation TN.. Coronary risk factors: Age, hypertension, diabetes mellitus, family history of coronary artery disease, and tobacco abuse disorder. Resting EKG: Sinus Rhythm. Nonspecific T changes lateral leads. Stress EKG: No changes of ischemia. The patient had no chest pain or discomfort, and there were no arrhythmias seen. Reason for termination: Protocol. Conclusions: Normal EKG and hemodynamic response to IV Lexiscan. Nuclear data: At rest, on 01/21/2019, the patient was given 41.4 millicuries of technetium 99m sestamibi injected intravenously. As per protocol rest gated SPECT images were obtained. Subsequently, on 01/22/2019, the patient was given intravenous Lexiscan at a dose of 0.4 mg in 5 mL intravenously, followed by flush with normal saline. Subsequently the stress dose of 41.1 millicuries of technetium 99m sestamibi was injected intravenously. As per protocol stress gated images were obtained. Nuclear interpretation: Review of images showed that there was a perfusion defect in both the rest and stress images involving the inferior wall, the inferolateral wall and the mid and distal lateral ayala. These areas had decreased motion contraction and thickening by gated study consistent with prior myocardial infarction. There was minimal reversible ischemia in these areas,consistent with teri-infarction ischemia. The rest of the segments of the myocardium had normal perfusion at rest, and normal perfusion post stress with IV Lexiscan. The rest of the segments of the myocardium had normal motion, contraction, and thickening by gated study. T. I D. ratio was normal at 0.95. There was no transient ischemic dilatation of the ventricle. Computer read rest, and stress left ventricular ejection fraction were 44 %, and 44 %, respectively. Conclusion: 1. There is scintigraphic evidence of Lexiscan induced minimal myocardial ischemia involving the areas of infarction of the inferior wall, inferolateral wall, and the mid and distal lateral ayala.. 2. There is scintigraphic evidence of myocardial infarction/scar. Involving the inferior wall, the inferolateral wall, and the mid and distal lateral ayala. 3.Ischemic cardiomyopathy with moderately reduced LV ejection fraction Recommendations: 1. Aggressive medical treatment of coronary artery disease, and aggressive medical treatment of cardiomyopathy as per guidelines. 2. Check echocardiogram for LV ejection fraction correlation. 3. Aggressive risk factor modification, and treating the underlying co- morbidities. MTDD
== END 2019-01-22 13:22 | disposition left against medical advice (07) | DRG 193 ==
LOC: ER 05:32 → EH 08:30 → 3W 01-17 11:30
PROVIDERS: ADMIT Internal Medicine Geriatric Medicine; ATTEND Internal Medicine Geriatric Medicine
PROC: 5A09557 Assistance with Respiratory Ventilation, Greater than 96 Consecutive Hours, Continuous Positive Airway Pressure (ICD-10-PCS; principal; 2019-01-16)
DX: J18.1 Lobar pneumonia, unspecified organism (principal); J96.01 Acute respiratory failure with hypoxia; J81.0 Acute pulmonary edema; I21.4 Non-ST elevation (NSTEMI) myocardial infarction; N17.9 Acute kidney failure, unspecified; J44.0 Chronic obstructive pulmonary disease with (acute) lower respiratory infection; Z68.41 Body mass index [BMI] 40.0-44.9, adult; H92.09 Otalgia, unspecified ear; E66.01 Morbid (severe) obesity due to excess calories; I10 Essential (primary) hypertension; K44.9 Diaphragmatic hernia without obstruction or gangrene; F90.9 Attention-deficit hyperactivity disorder, unspecified type; I25.5 Ischemic cardiomyopathy; F32.9 Major depressive disorder, single episode, unspecified; J32.9 Chronic sinusitis, unspecified; E11.65 Type 2 diabetes mellitus with hyperglycemia; F41.9 Anxiety disorder, unspecified; G89.29 Other chronic pain; E86.0 Dehydration; E78.5 Hyperlipidemia, unspecified; F17.210 Nicotine dependence, cigarettes, uncomplicated; Z79.899 Other long term (current) drug therapy; Z91.19 Patient's noncompliance with other medical treatment and regimen; Z79.4 Long term (current) use of insulin; Z91.14 Patient's other noncompliance with medication regimen; Z87.891 Personal history of nicotine dependence; Z83.3 Family history of diabetes mellitus; Z82.49 Family history of ischemic heart disease and other diseases of the circulatory system
CPT/HCPCS: 36415; 36600; 70498; 71045; 71275; 78452; 80048; 80053; 80061; 82550; 82553; 82803; 82962; 83036; 83605; 83735; 84100; 84484; 85025; 85610; 85730; 86850; 86900; 86901; 87040; 93005; 93010; 93017; 94660; 96365; 96368; 99291; 99292; A9500; J0456; J0692; J0696; J1650; J1815; J1940; J1956; J2060; J2270; J2405; J2785; J3490; J7030; J7060; J7620; Q9969

== ENCOUNTER 2019-02-20 03:58 | Emergency (ER) | payer BC, OTHER ==
--- NOTE | 2019-02-20 05:04 | ER Document Report ---
ED General - General Stated Complaint: UNRESPONSIVE Primary Care Provider: RONEN SINGH PA-C [Primary Care Provider] - Follow up as needed Mode of Arrival: Medic Information source: Relative, Emergency Med Personnel, [facility] Records Cannot obtain history due to: Intubated, Unstable vital signs Notes: 48-year-old male with hypertension, type 1 diabetes, cardiomyopathy, coronary artery disease, congestive heart failure, chronic pain presents via EMS with CPR in progress. EMS reports that they were called to the house for respiratory distress. Upon their arrival they report that the patient was tachypneic and "foaming at the mouth". Patient was reported to have increased work of breathing and was diaphoretic with bilateral rails. EMS reports a witnessed arrest and initial rhythm was PEA patient does not meet any exclusion criteria for TPA at this time. I have reviewed the risks and benefits of administration of TPA with the family at the bedside. We have reviewed the risks of in tracranial bleed and the possible benefits of increased functional independence at 90 days with the use of TPA.. CPR was initiated by EMS and the patient did receive 7 rounds of epinephrine, 2 mg of Narcan. EMS also reports that the patient on rhythm check was in ventricular fibrillation and was shocked twice and administered amiodarone. who did not present to the emergency department until after the patient was pronounced does report that the patient started complaining of neck pain, shortness of breath and chest pain which prompted her to call EMS. TRAVEL OUTSIDE OF THE [place] IN LAST 30 DAYS: No - HPI Onset: Just prior to arrival Associated symptoms: Chest pain, Shortness of breath - Related Data Allergies/Adverse Reactions: No Known Allergies Allergy (Verified 04/22/18 17:06) Past Medical History - General Information source: Relative, Emergency Med Personnel, [facility] Records - Social History Smoking Status: Never Smoker Frequency of alcohol use: None Drug Abuse: Prescription drugs Lives with: Spouse/Significant other Family History: CAD - Father had coronary artery bypass grafting, DM, Hypertension, Malignancy - Past Medical History Cardiac Medical History: Reports: Hx Hypertension Pulmonary Medical History: Reports: Hx Pneumonia Neurological Medical History: Denies: Hx Migraine Endocrine Medical History: Reports: Hx Diabetes Mellitus Type 1, Hx Diabetes Mellitus Type 2 Renal/ Medical History: Denies: Hx Peritoneal Dialysis GI Medical History: Reports: Hx Hiatal Hernia Musculoskeletal Medical History: Reports Hx Arthritis Psychiatric Medical History: Reports: Hx Anxiety, Hx Attention Deficit Hyperactivity Disorder, Hx Depression Traumatic Medical History: Denies: Hx Pneumothorax, Hx Traumatic Brain Injury Infectious Medical History: Denies: Hx C-Diff, Hx HIV Past Surgical History: Reports: Hx Appendectomy, Hx Oral Surgery, Hx Orthopedic Surgery - Immunizations Hx Diphtheria, Pertussis, Tetanus Vaccination: Yes Review of Systems - Review of Systems -: Yes ROS unobtainable due to patient's medical condition Physical Exam - Notes Notes: PHYSICAL EXAMINATION: GENERAL: Unresponsive, intubated, arrived with CPR in progress HEAD: Atraumatic, normocephalic. EYES: Pupils fixed, dilated and unreactive ENT: Nares patent, oropharynx clear without exudates. Moist mucous membranes. NECK: Normal range of motion, supple without lymphadenopathy LUNGS: 7 no ET tube in place with good color change, diminished breath sounds bilaterally, no spontaneous respirations HEART: Asystole ABDOMEN: Distended Musculoskeletal: No lower extremity edema NEUROLOGICAL: GCS 3 T SKIN: Ashen Course - Re-evaluation Re-evalutation: 02/20/19 05:04 48-year-old male with hypertension, type 1 diabetes, cardiomyopathy, coronary artery disease, congestive heart failure, chronic pain presents via EMS with CPR in progress. EMS reports that they were called to the house for respiratory distress. Upon their arrival they report that the patient was tachypneic and "foaming at the mouth". Patient was reported to have increased work of breathing and was diaphoretic with bilateral rails. EMS reports a witnessed arrest and initial rhythm was PEA patient does not meet any exclusion criteria for TPA at this time. I have reviewed the risks and benefits of administration of TPA with the family at the bedside. We have reviewed the risks of intracranial bleed and the possible benefits of increased functional independence at 90 days with the use of TPA.. CPR was initiated by EMS and the patient did receive 7 rounds of epinephrine, 2 mg of Narcan. EMS also reports that the patient on rhythm check was in ventricular fibrillation and was shocked twice and administered amiodarone. who did not present to the emergency department until after the patient was pronounced does report that the patient started complaining of neck pain, shortness of breath and chest pain which prompted her to call EMS. Patient arrived at 04 100 with CPR in progress. Patient had already been administered epinephrine, Narcan and amiodarone via EMS. Additional medications including sodium bicarb, calcium gluconate, Narcan, TNK were administered. Patient did have 2 rhythm checks which did show fine ventricular fibrillation and was shocked but had no return of spontaneous circulation. Ultrasound was at the bedside and showed no cardiac activity. Fasting glucose was 512. Patient's total witnessed downtime was 58 minutes. informed of her 's . Home medications included atorvastatin, metoprolol, sildenafil, BuSpar, Suboxone, losartan. Previous medical records were reviewed and patient was recently admitted to the hospital where he was found to have pneumonia, NSTEMI, cardiomyopathy. 02/20/19 05:48 02/20/19 05:51 Procedures - Additional Procedures Cardioversion/Defib Time performed: 05:52 Additional Procedures: Cardioversion/defib, IO insertion Notes: 02/20/19 05:53 Patient did receive defibrillation for ventricular fibrillation. Discharge - Discharge Clinical Impression: Cardiac arrest, Disposition: OTHER Referrals: RONEN SINGH PA-C [Primary Care Provider] - Follow up as needed
[2019-02-20] MEDS ORDERED: TENECTEPLASE INJ 50 MG KIT IV ONE (13:20)
[2019-02-20] MEDS ORDERED: SODIUM BICARBONATE 8.4% INJ 50 MEQ/50 ML DISP.SYRIN ONE (13:49)
[2019-02-20] MEDS ORDERED: EPINEPHRINE INJ 1 MG/10 ML DISP.SYRIN ONE (13:49)
== END 2019-02-20 05:38 | disposition other institution (70) ==
LOC: ER 03:58
PROC: 5A2204Z Restoration of Cardiac Rhythm, Single (ICD-10-PCS; principal; 2019-02-20)
DX: I46.9 Cardiac arrest, cause unspecified (principal); M54.2 Cervicalgia; R06.02 Shortness of breath; R07.9 Chest pain, unspecified; Z79.899 Other long term (current) drug therapy; E10.9 Type 1 diabetes mellitus without complications; I42.9 Cardiomyopathy, unspecified; I25.10 Atherosclerotic heart disease of native coronary artery without angina pectoris; I50.9 Heart failure, unspecified; I11.0 Hypertensive heart disease with heart failure
CPT/HCPCS: 99285; 96374; 96375; 82962; 93799; J3101; J0171; J3490